=== PATIENT | male | born 1945 | race Caucasian/White ===

== ENCOUNTER 2016-06-24 12:06 | Emergency (ER) | payer BC ==
[2016-06-24 12:25] VITALS: BP 120/75; PULSE 66; TEMP 98; BMI 35.2
--- NOTE | 2016-06-24 12:39 | PDOC ---
History of Present Illness - General Chief Complaint: Injury Stated Complaint: (PCP SENT) SENT FOR RT HAND EVALUATION History Source: Patient Exam Limitations: No Limitations - History of Present Illness Initial Comments: 06/24/16 12:38 struck pole with left hand yesterday , sent for Xray from PMD Occurred: reports: yesterday Severity: reports: mild, moderate Pain Location: reports: upper extremity (left hand ) Past History - Past Medical History Allergies/Adverse Reactions: Allergies Allergy/AdvReac Type Severity Reaction Status Date / Time ibuprofen [From Motrin IB] Allergy Rash Verified 06/24/16 12:20 terfenadine [From Seldane] Allergy Rash Verified 06/24/16 12:20 Home Medications: Ambulatory Orders Carvedilol [Coreg] 6.25 mg PO BID 11/18/11 Glipizide [Glucotrol -] 10 mg PO BID 11/18/11 Metformin HCl [Glucophage] 1,000 mg PO BID 11/18/11 Levothyroxine [Synthroid -] 175 mcg PO DAILY@0700 #0 tablet 08/02/13 Latanoprost 0.005% Eye Drops [Xalatan 0.005% Eye Drops -] 1 drop OU DAILY Vitamin B Complex [B Complex # 1] 1 tab PO DAILY 08/09/13 Multivitamin/Iron/Folic Acid [One Daily Multivitamin-Iron Tb] 1 each PO DAILY Vit A/Vit C/Vit E/Zinc/Copper [Preservision Tablet] 1 tab PO DAILY 08/12/14 Tamsulosin HCl [Flomax -] 0.4 mg PO DAILY 30 Days 09/07/14 Aspirin [ASA -] 81 mg PO DAILY 02/09/16 Clopidogrel Bisulfate [Plavix -] 75 mg PO DAILY 06/24/16 Anemia: Yes Asthma: No Cancer: No Cardiac Disorders: Yes (ASHD S/P CT) CVA: No COPD: No CHF: No Dementia: No Diabetes: Yes GI Disorders: Yes (COLON POLYPS,HIGHLY DYSPLASTIC RIGHT COLON POLYP,GERD, DIVERTICULOSIS) Disorders: Yes (BPH) HTN: Yes Hypercholesterolemia: No Liver Disease: Yes Seizures: No Thyroid Disease: Yes (HYPO) - Surgical History Abdominal Surgery: Yes (LAPAROSCOPIC RIGHT HEMICOLECTOMY) Appendectomy: No Cardiac Surgery: No Cholecystectomy: No Lung Surgery: No Neurologic Surgery: No Orthopedic Surgery: Yes (LEFT TOTAL SHOULDER REPLACEMENT) - Psycho/Social/Smoking Cessation Hx Anxiety: No Suicidal Ideation: No Smoking Status: Yes Smoking History: Current every day smoker Have you smoked in the past 12 months: Yes Number of Cigarettes Smoked Daily: 10 Information on smoking cessation initiated: No 'Breaking Loose' booklet given: 02/09/16 Hx Alcohol Use: Yes Drug/Substance Use Hx: No Substance Use Type: None Hx Substance Use Treatment: No Trauma Specific PMHX - Complaint Specific PMHX Back Injury: No Review of Systems - Review of Systems Able to Perform ROS?: Yes Is the patient limited Mozambican proficient: Yes Constitutional: Yes: See HPI, Malaise. No: Symptoms Reported HEENTM: No: Symptoms Reported Respiratory: No: Symptoms reported Musculoskeletal: Yes: Symptoms Reported, See HPI, Joint Pain, Joint Swelling Integumentary: Yes: Symptoms Reported, See HPI, Bruising All Other Systems: Reviewed and Negative *Physical Exam - Vital Signs Last Vital Signs Temp Pulse Resp BP Pulse Ox 98 F 66 19 120/75 97 06/24/16 12:20 06/24/16 12:20 06/24/16 12:20 06/24/16 12:20 06/24/16 12:20 - Physical Exam General Appearance: Yes: Nourished, Appropriately Dressed, Apparent Distress HEENT: positive: [place], Normal ENT Inspection, TMs Normal, Pharynx Normal Progress Note - Progress Note Progress Note: Xray Negative/ has debris from old injuries *DC/Admit/Observation/Transfer Diagnosis at time of Disposition: Contusion, hand Qualifiers: Encounter type: initial encounter Laterality: left Qualified Code(s): S60.222A - Contusion of left hand, initial encounter - Discharge Dispostion Disposition: HOME Condition at time of disposition: Stable Admit: No - Patient Instructions Printed Discharge Instructions: DI for Contusion Additional Instructions: Rest, ice to area on and off for 15 minutes 4-6 times a day Avoid heavy lifting or exercise until pain and swelling is resolved or until further directed Keep area highly elevated to reduce swelling Use Sling to keep hand highly elevated Followup with orthopedist in one to 2 days if not improving, if significantly improved may wait one week for followup with orthopedist
[2016-06-24] MEDS ORDERED: ACETAMINOPHEN 500 MG TABLET (FP) ONE (13:24)
== END 2016-06-24 13:42 | disposition home or self-care (01) ==
LOC: JERFT 12:06
DX: S60.222A Contusion of left hand, initial encounter (principal); W22.8XXA Striking against or struck by other objects, initial encounter; Y93.89 Activity, other specified; Y92.89 Other specified places as the place of occurrence of the external cause; I25.10 Atherosclerotic heart disease of native coronary artery without angina pectoris; I10 Essential (primary) hypertension; F17.210 Nicotine dependence, cigarettes, uncomplicated; I25.2 Old myocardial infarction; E11.9 Type 2 diabetes mellitus without complications; N40.0 Benign prostatic hyperplasia without lower urinary tract symptoms; K21.9 Gastro-esophageal reflux disease without esophagitis; E03.9 Hypothyroidism, unspecified; K76.9 Liver disease, unspecified; Z79.84 Long term (current) use of oral hypoglycemic drugs
CPT/HCPCS: 73130-TC-LT; 99281-25

== ENCOUNTER 2017-04-22 02:39 | Inpatient (IN) | payer BC ==
--- NOTE | 2017-04-22 03:00 | PDOC ---
History of Present Illness <Mely Head - Last Filed: 04/22/17 09:15> - General History Source: Patient, Family Exam Limitations: No Limitations - History of Present Illness Initial Comments: 04/22/17 02:57 Patient is a 71-year-old male with past medical history of cardiac stents currently on Plavix and aspirin, precancerous polyps in the colon status post colectomy, hypertension, hypothyroidism, diabetes mellitus, who presents emergency department today for bright red blood per rectum. Patient states he awoke at 2 AM this morning and had multiple bloody bowel movements. He states that the blood filled the toilet. His states that it was bright red but thick in color almost appearing like ketchup. This is never happened to him before. Denies lightheadedness, dizziness, LOC, head trauma, fatigue, shortness of breath, chest pain, frequency, urgency and hematuria. <Kerry Flores - Last Filed: 04/24/17 15:12> - General Chief Complaint: Rectal Bleed Stated Complaint: RECTAL BLEED Time Seen by Provider: 04/22/17 02:56 Past History <Mely Head - Last Filed: 04/22/17 09:15> - Travel Traveled outside of the country in the last 30 days: No Close contact w/someone who was outside of country & ill: No - Past Medical History Anemia: Yes Asthma: No Cancer: No Cardiac Disorders: Yes (ASHD S/P [place]) CVA: No COPD: No CHF: No Dementia: No Diabetes: Yes GI Disorders: Yes (COLON POLYPS,HIGHLY DYSPLASTIC RIGHT COLON POLYP,GERD, DIVERTICULOSIS) Disorders: Yes (BPH) HTN: Yes Hypercholesterolemia: No Liver Disease: Yes Seizures: No Thyroid Disease: Yes (HYPO) - Surgical History Abdominal Surgery: Yes (LAPAROSCOPIC RIGHT HEMICOLECTOMY) Appendectomy: No Cardiac Surgery: No Cholecystectomy: No Lung Surgery: No Neurologic Surgery: No Orthopedic Surgery: Yes (LEFT TOTAL SHOULDER REPLACEMENT) - Immunization History Immunization Up to Date: No - Suicide/Smoking/Psychosocial Hx Smoking Status: Yes Smoking History: Current some day smoker Have you smoked in the past 12 months: Yes Number of Cigarettes Smoked Daily: 20 Information on smoking cessation initiated: No 'Breaking Loose' booklet given: 02/09/16 Hx Alcohol Use: No Drug/Substance Use Hx: No Substance Use Type: None Hx Substance Use Treatment: No <Sciliano,Kerry - Last Filed: 04/24/17 15:12> - Past Medical History Allergies/Adverse Reactions: Allergies Allergy/AdvReac Type Severity Reaction Status Date / Time ibuprofen [From Motrin IB] Allergy Rash Verified 04/22/17 02:56 terfenadine [From Seldane] Allergy Rash Verified 04/22/17 02:56 Home Medications: Ambulatory Orders Carvedilol [Coreg] 6.25 mg PO BID 11/18/11 Glipizide [Glucotrol -] 10 mg PO BID 11/18/11 metFORMIN HCL [Glucophage] 1,000 mg PO BID 11/18/11 Latanoprost 0.005% Eye Drops [Xalatan 0.005% Eye Drops -] 1 drop OU DAILY Vitamin B Complex [B Complex # 1] 1 tab PO DAILY 08/09/13 Multivitamin/Iron/Folic Acid [One Daily Multivitamin-Iron Tb] 1 each PO DAILY Vit A/Vit C/Vit E/Zinc/Copper [Preservision Tablet] 1 tab PO DAILY 08/12/14 Tamsulosin HCl [Flomax -] 0.4 mg PO DAILY 30 Days capsule 09/07/14 Aspirin [ASA -] 81 mg PO DAILY 02/09/16 Clopidogrel Bisulfate [Plavix -] 75 mg PO DAILY 06/24/16 Levothyroxine [Synthroid -] 200 mcg PO DAILY 04/22/17 Review of Systems - Review of Systems Able to Perform ROS?: Yes Comments:: 04/22/17 02:59 CONSTITUTIONAL: Absent: fever, chills, diaphoresis, generalized weakness, malaise, loss of appetite HEENT: Absent: rhinorrhea, nasal congestion, throat pain, throat swelling, difficulty swallowing, mouth swelling, ear pain, eye pain, visual Changes CARDIOVASCULAR: Absent: chest pain, loss of consciousness, palpitations, irregular heart rate, peripheral edema RESPIRATORY: Absent: cough, shortness of breath, dyspnea with exertion, orthopnea, wheezing, stridor, hemoptysis GASTROINTESTINAL: Present: bright red blood per rectum, hematochezia. Absent: abdominal pain, abdominal distension, nausea, vomiting, diarrhea, constipation, melena, GENITOURINARY: Absent: dysuria, frequency, urgency, hesitancy, hematuria, flank pain, genital pain MUSCULOSKELETAL: Absent: myalgia, arthralgia, joint swelling SKIN: Absent: rash, itching, pallor HEMATOLOGIC/IMMUNOLOGIC: Absent: easy bleeding, easy bruising, lymphadenopathy, frequent infections ENDOCRINE: Absent: unexplained weight gain, unexplained weight loss, heat intolerance, cold intolerance NEUROLOGIC: Absent: headache, focal weakness or paresthesias, dizziness, unsteady gait, seizure, mental status changes, bladder or bowel incontinence PSYCHIATRIC: Absent: anxiety, depression, suicidal or homicidal ideation, hallucinations. Is the patient limited Croatian proficient: No <Kerry Flores - Last Filed: 04/24/17 15:12> *Physical Exam - Vital Signs Last Vital Signs Temp Pulse Resp BP Pulse Ox 99 F 68 13 117/85 99 04/22/17 09:00 04/22/17 09:00 04/22/17 09:00 04/22/17 09:00 04/22/17 09:00 <Mely Head - Last Filed: 04/22/17 09:15> - Vital Signs Last Vital Signs Temp Pulse Resp BP Pulse Ox 97.5 F L 78 19 93/76 97 04/22/17 02:52 04/22/17 02:52 04/22/17 02:52 04/22/17 02:52 04/22/17 02:52 - Physical Exam Comments: 04/22/17 02:59 GENERAL: Well developed, well nourished. Awake and alert. No acute distress. HEENT: Normocephalic, atraumatic. PERRLA, EOMI. No conjunctival pallor. Sclera are non- icteric. Moist mucous membranes. Oropharynx is clear. NECK: Supple. Full ROM. No JVD. Carotid pulses 2+ and symmetric, without bruits. No thyromegaly. No lymphadenopathy. CARDIOVASCULAR: Regular rate and rhythm. No murmurs, rubs, or gallops. Distal pulses are 2+ and symmetric. PULMONARY: No evidence of respiratory distress. Lungs clear to auscultation bilaterally. No wheezing, rales or rhonchi. ABDOMINAL: Soft. Non-tender. Non-distended. No rebound or guarding. No organomegaly. Normoactive bowel sounds. RECTAL: Dried blood around the anal shincter. One minimal external hemorrhoid measuring less than 0.5cm at the 6 oclock positions. Good rectal tone. Bright red blood in the rectal vault. No internal hemorrohoids felt. Unable to feel the prostate. MUSCULOSKELETAL Normal range of motion at all joints. No bony deformities or tenderness. No CVA tenderness. EXTREMITIES: No cyanosis. No clubbing. No edema. No calf tenderness. SKIN: Warm and dry. Normal capillary refill. No rashes. No jaundice. NEUROLOGICAL: Alert, awake, appropriate. Cranial nerves 2-12 intact. No deficits to light touch and temperature in face, upper extremities and lower extremities. No motor deficits in the in face, upper extremities and lower extremities. Normoreflexic in the upper and lower extremities. Normal speech. Toes are down- going bilaterally. Gait is normal without ataxia. PSYCHIATRIC: Cooperative. Good eye contact. Appropriate mood and affect. <Kerry Flores - Last Filed: 04/24/17 15:12> ED Treatment Course - LABORATORY CBC & Chemistry Diagram: 04/22/17 06:44 04/22/17 03:36 - ADDITIONAL ORDERS Additional order review: Laboratory Results 04/22/17 04/22/17 04/22/17 04:20 03:36 03:36 PT with INR INR Sodium 140 Potassium 4.6 Chloride 107 Carbon Dioxide 28 Anion Gap 5 L BUN 17 D Creatinine 0.9 Creat Clearance w eGFR > 60 Random Glucose 227 H D Calcium 7.9 L Total Bilirubin 0.8 AST 18 D ALT 22 D Alkaline Phosphatase 93 Total Protein 6.4 Albumin 3.1 L Urine Color Dkyellow Urine Appearance Clear Urine pH 5.0 Ur Specific [place] 1.029 Urine Protein Negative Urine Glucose (UA) 1+ H Urine Ketones Trace H Urine Blood Negative Urine Nitrite Negative Urine Bilirubin Negative Urine Urobilinogen 2.0 Ur Leukocyte Esterase Negative Stool Occult Blood Blood Type A POSITIVE Antibody Screen Negative Crossmatch See Detail 04/22/17 04/22/17 03:36 03:35 PT with INR 13.70 H INR 1.21 H Sodium Potassium Chloride Carbon Dioxide Anion Gap BUN Creatinine Creat Clearance w eGFR Random Glucose Calcium Total Bilirubin AST ALT Alkaline Phosphatase Total Protein Albumin Urine Color Urine Appearance Urine pH Ur Specific [place] Urine Protein Urine Glucose (UA) Urine Ketones Urine Blood Urine Nitrite Urine Bilirubin Urine Urobilinogen Ur Leukocyte Esterase Stool Occult Blood Positive Blood Type Antibody Screen Crossmatch 04/22/17 04/22/17 06:44 03:36 RBC 2.46 L D 4.20 MCV 94.0 93.2 MCHC 33.0 33.0 RDW 15.2 15.5 D MPV 8.2 7.7 Neutrophils % 69.2 77.7 D Lymphocytes % 20.3 D 12.5 D Monocytes % 7.7 7.7 Eosinophils % 2.3 1.6 Basophils % 0.5 0.5 - Medications Given in the ED: ED Medications Discontinued Medications Generic Name Dose Route Start Last Admin Trade Name Oneal PRN Reason Stop Dose Admin Sodium Chloride 1,000 mls @ 1,000 mls/hr 04/22/17 03:15 04/22/17 03:51 Normal Saline - IV 04/22/17 04:14 1,000 mls/hr ASDIR STA Administration <Mely Head - Last Filed: 04/22/17 09:15> - LABORATORY CBC & Chemistry Diagram: 04/23/17 18:55 04/23/17 06:30 <Kerry Flores - Last Filed: 04/24/17 15:12> Medical Decision Making - Medical Decision Making 04/22/17 02:59 Patient is a 71-year-old male with extensive past medical history including cardiac stents on Plavix and aspirin, precancerous polyps requiring cholecystectomy, who presents to emergency department today with 3 watery bloody bowel movements. No blood in rectal vault currently. Concerned for potential new polyp or higher of internal hemorrhoid. 1.labs, type and screen 2.EKG 3.IV fluids 4.reevaluate PCP: Dr. Zeynep Momin Cardiology: [facility]: Dr. Hopkins 04/22/17 4:58 EKG shows a rate of 66 bpm normal sinus normal axis, QTC 457, nonspecific T- wave abnormality Stool guaiac positive. Hemoglobin stable at 12. Lab work shows a white count of 14. Unsure as to cause at this time. We'll order a chest x-ray. Urine is negative for infection. Patient has no abdominal pain on repeat exam. Patient has not had a bowel movement since being in the ER. We'll also order repeat CBC to trends hemoglobin for 6 AM. 04/22/17 06:00 Repeat CBC collected. 04/22/17 07:00 Patient is still waiting for chest x-ray, CBC not yet resulted. We'll give signout to [facility] Tonie Ram for disposition. Anticipate observation at this time for GI bleed on Plavix. <Kerry Flores - Last Filed: 04/24/17 15:12> *DC/Admit/Observation/Transfer <Mely Head - Last Filed: 04/22/17 09:15> - Discharge Dispostion Admit: Yes <Kerry Flores - Last Filed: 04/24/17 15:12> Diagnosis at time of Disposition: Transfusion of blood during current hospitalisation, Rectal bleeding Anemia Qualifiers: Anemia type: unspecified type Qualified Code(s): D64.9 - Anemia, unspecified - Discharge Dispostion Condition at time of disposition: Fair
[2017-04-22] MEDS ORDERED: SODIUM CHLORIDE 1,000 ML IV STA (03:15)
[2017-04-22 03:51] LABS: BASO % 0.5 % (0-2.0); EOS % 1.6 % (0-4.5); HEMATOCRIT 39.2 % (35.4-49); HEMOGLOBIN 12.9 GM/dL (11.7-16.9); LYMPH % 12.5 % (8-40); MCH 30.7 pg (25.7-33.7); MEAN CELL VOLUME 93.2 fl (80-96); MEAN PLT VOLUME 7.7 fl (7.5-11.1); MONO % 7.7 % (3.8-10.2); NEUT % 77.7 % (42.8-82.8); PLATELET COUNT 199 K/MM3 (134-434); RDW 15.5 % (11.9-15.9); WHITE BLOOD COUNT 14.2 K/mm3 (4.0-10.0)
[2017-04-22 04:04] LABS: INR 1.21 (0.82-1.09); PROTHROMBIN TIME (PATIENT) 13.7 SEC (9.98-11.88)
[2017-04-22 04:14] LABS: ALBUMIN 3.1 g/dl (3.4-5.0); ANION GAP 5 (8-16); BILIRUBIN,TOTAL 0.8 mg/dL (0.2-1.0); BLOOD UREA NITROGEN 17 mg/dL (7-18); CALCIUM 7.9 mg/dL (8.5-10.1); CHLORIDE 107 mmol/L (98-107); CO2 28 mmol/L (21-32); CREATININE 0.9 mg/dL (0.7-1.3); GLUCOSE,RANDOM 227 mg/dL (74-106); POTASSIUM 4.6 mmol/L (3.5-5.1); SGOT/AST 18 U/L (15-37); SGPT/ALT 22 U/L (12-78); SODIUM 140 mmol/L (136-145); TOT PROT 6.4 g/dl (6.4-8.2)
[2017-04-22 04:15] LABS: ALK PHOS 93 U/L (45-117)
[2017-04-22 04:40] LABS: URINE APPEARANCE CLEAR; URINE BILIRUBIN NEGATIVE (NEGATIVE); URINE BLOOD NEGATIVE (NEGATIVE); URINE COLOR DKYELLOW; URINE GLUCOSE (UA) 1+ (NEGATIVE); URINE KETONE TRACE (NEGATIVE); URINE LEUK ESTERASE NEGATIVE (NEGATIVE); URINE NITRITE NEGATIVE (NEGATIVE); URINE PROTEIN NEGATIVE (NEGATIVE)
[2017-04-22 07:01] LABS: BASO % 0.5 % (0-2.0); EOS % 2.3 % (0-4.5); HEMATOCRIT 23.1 % (35.4-49); HEMOGLOBIN 7.6 GM/dL (11.7-16.9); LYMPH % 20.3 % (8-40); MEAN PLT VOLUME 8.2 fl (7.5-11.1); MONO % 7.7 % (3.8-10.2); NEUT % 69.2 % (42.8-82.8); PLATELET COUNT 139 K/MM3 (134-434); RBC 2.46 M/mm3 (4.00-5.60); RDW 15.2 % (11.9-15.9); WHITE BLOOD COUNT 8.4 K/mm3 (4.0-10.0)
--- NOTE | 2017-04-22 09:24 | PDOC ---
*Physical Exam - Vital Signs Last Vital Signs Temp Pulse Resp BP Pulse Ox 99 F 68 13 117/85 99 04/22/17 09:00 04/22/17 09:00 04/22/17 09:00 04/22/17 09:00 04/22/17 09:00 ED Treatment Course - LABORATORY CBC & Chemistry Diagram: 04/22/17 06:44 04/22/17 03:36 - ADDITIONAL ORDERS Additional order review: Laboratory Results 04/22/17 04/22/17 04/22/17 04:20 03:36 03:36 PT with INR INR Sodium 140 Potassium 4.6 Chloride 107 Carbon Dioxide 28 Anion Gap 5 L BUN 17 D Creatinine 0.9 Creat Clearance w eGFR > 60 Random Glucose 227 H D Calcium 7.9 L Total Bilirubin 0.8 AST 18 D ALT 22 D Alkaline Phosphatase 93 Total Protein 6.4 Albumin 3.1 L Urine Color Dkyellow Urine Appearance Clear Urine pH 5.0 Ur Specific [place] 1.029 Urine Protein Negative Urine Glucose (UA) 1+ H Urine Ketones Trace H Urine Blood Negative Urine Nitrite Negative Urine Bilirubin Negative Urine Urobilinogen 2.0 Ur Leukocyte Esterase Negative Stool Occult Blood Blood Type A POSITIVE Antibody Screen Negative Crossmatch See Detail 04/22/17 04/22/17 03:36 03:35 PT with INR 13.70 H INR 1.21 H Sodium Potassium Chloride Carbon Dioxide Anion Gap BUN Creatinine Creat Clearance w eGFR Random Glucose Calcium Total Bilirubin AST ALT Alkaline Phosphatase Total Protein Albumin Urine Color Urine Appearance Urine pH Ur Specific [place] Urine Protein Urine Glucose (UA) Urine Ketones Urine Blood Urine Nitrite Urine Bilirubin Urine Urobilinogen Ur Leukocyte Esterase Stool Occult Blood Positive Blood Type Antibody Screen Crossmatch 04/22/17 04/22/17 06:44 03:36 RBC 2.46 L D 4.20 MCV 94.0 93.2 MCHC 33.0 33.0 RDW 15.2 15.5 D MPV 8.2 7.7 Neutrophils % 69.2 77.7 D Lymphocytes % 20.3 D 12.5 D Monocytes % 7.7 7.7 Eosinophils % 2.3 1.6 Basophils % 0.5 0.5 - Medications Given in the ED: ED Medications Discontinued Medications Generic Name Dose Route Start Last Admin Trade Name Freq PRN Reason Stop Dose Admin Sodium Chloride 1,000 mls @ 1,000 mls/hr 04/22/17 03:15 04/22/17 03:51 Normal Saline - IV 04/22/17 04:14 1,000 mls/hr ASDIR STA Administration Medical Decision Making - Medical Decision Making 04/22/17 08:22 Patient received in sign out from CARLENE Arthur. Patient here with sudden onset of bright red blood via rectum and now with a 5. hemoglobin drop. Patient vital stable. Patient ordered for 1 unit of blood and awaiting callback from primary care physician Dr. Jama Momin and patient's GI specialist Dr. Anderson. 04/22/17 09:23 Selected Entries 04/22/17 09:00 Temperature 99 F Pulse Rate [ 68 Apical] Respiratory 13 Rate Blood Pressure 117/85 [Left Arm] O2 Sat by Pulse 99 Oximetry (%) Case discussed with Dr. Russell and recommends unit of blood and will consult shortly. Awaiting callback from Jama Momin. Patient remains asymptomatic and comfortable in bed with at bedside 04/22/17 10:[address] Cristina Galvez and will consult shortly. Patient needed to [facility] inpatient. *DC/Admit/Observation/Transfer Diagnosis at time of Disposition: Transfusion of blood during current hospitalisation, Anemia, Rectal bleeding - Discharge Dispostion Condition at time of disposition: Fair Admit: Yes - Referrals Referrals: Zeynep Momin MD [Primary Care Provider] - - Patient Instructions - Post Discharge Activity
[2017-04-22] MEDS ORDERED: DEXTROSE 5%-NORMAL SALINE 1,000 ML IV SCH (11:15)
[2017-04-22] MEDS: PANTOPRAZOLE SODIUM 40 MG VIAL IVPUSH SCH (11:25)
[2017-04-22 13:35] VITALS: BMI 36.8
--- NOTE | 2017-04-22 17:03 | PN ---
Progress Note (short form) - Note Progress Note: GI CONSULTATION SEE COMPLETE DICTATION IN BRIEF: 71M WITH HTN/ASCAD/ S/P ICS ON ASA/PLAVIX HX OF DYSPLASTIC COLONIC POLYPS, S/P ILEOCOLIC RESECTION 2013 LAST COLON--2014---WITH SEVERE TICS AND RECURRENT POLYPS PRESENTS WITH ACUTE HEMATOCHEZIA AND MARKED DROP IN HGB TO 7 PAINLESS BRBPR x 3 FINDINGS C/W A HEMODYNE STABLE LGIB----> PRESUMED DIVERTICULAR RECC: HOLD ASA/PLAVIX PRBC F/U H/H OBSERVE----APPEARS LESSENING---ONCE STABLE TO UNDERGO COLONOSOCPY NEXT WEEK OPNCE OFF A/C IF BLEEDING ACCELERATES, THEN WILL NEED BLEEDING SCAN/ POSSIBLE CT ANGIO AND IV OCTREOTIDE/SURGICAL EVAL. THANKS, MD WINNIE
[2017-04-22] MEDS: INSULIN SLIDING SCALE (NOVOLOG) 1 VIAL SQ SCH ×2 (17:14→21:08)
[2017-04-22 18:43] LABS: HEMOGLOBIN 11.2 GM/dL (11.7-16.9); MCH 31.1 pg (25.7-33.7); MCHC 33.9 g/dl (32.0-35.9); MEAN CELL VOLUME 91.9 fl (80-96); PLATELET COUNT 174 K/MM3 (134-434); RBC 3.59 M/mm3 (4.00-5.60); RDW 15.8 % (11.9-15.9); WHITE BLOOD COUNT 10.6 K/mm3 (4.0-10.0)
--- NOTE | 2017-04-22 19:41 | HP ---
Admitting History and Physical - Primary Care Physician PCP: Zeynep Momin - Admission Chief Complaint: GI bleed History of Present Illness: History of Present Illness Initial Comments: 04/22/17 02:57 Patient is a 71-year-old male with past medical history of cardiac stents currently on Plavix and aspirin, precancerous polyps in the colon status post colectomy, hypertension, hypothyroidism, diabetes mellitus, who presents emergency department today for bright red blood per rectum. Patient states he awoke at 2 AM this morning and had multiple bloody bowel movements. He states that the blood filled the toilet. His states that it was bright red but thick in color almost appearing like ketchup. This is never happened to him before. Denies lightheadedness, dizziness, LOC, head trauma, fatigue, shortness of breath, chest pain, frequency, urgency and hematuria. Pt seen by me in ER at bedside so far no active bleeding-- only when he wipes himself No pain , dizziness last Plavix dose was yesterday Currently receiving one unit PRBC Pt is on ASA and Plavix for stent placed in Sep 2015 History Source: Patient, Family Member Limitations to Obtaining History: No Limitations - Past Medical History Cardiovascular: Yes: HTN. No: AFIB, Aneurysm, Aortic Insufficiency, Aortic Stenosis, CAD, CHF, Deep Vein Thrombosis, Hyperlipdemia, [place], Mitral Insufficiency, Mitral Stenosis, Murmur, Pulmonary Hypertension, Other Pulmonary: Yes: COPD Heme/Onc: Yes: Anemia Endocrine: Yes: Diabetes Mellitus, Hypothyroidism. No: [place]'s Disease, Christina's Disease, Diabetes Insipidus, Hyperparathyroidism, Hyperthyroidism, Osteopenia, SIADH, Other - Smoking History Smoking history: Current some day smoker Have you smoked in the past 12 months: Yes Aproximately how many cigarettes per day: 20 - Alcohol/Substance Use Hx Alcohol Use: No Home Medications - Allergies Allergies/Adverse Reactions: Allergies Allergy/AdvReac Type Severity Reaction Status Date / Time ibuprofen [From Motrin IB] Allergy Rash Verified 04/22/17 02:56 terfenadine [From Seldane] Allergy Rash Verified 04/22/17 02:56 - Home Medications Home Medications: Ambulatory Orders Carvedilol [Coreg] 6.25 mg PO BID 11/18/11 Glipizide [Glucotrol -] 10 mg PO BID 11/18/11 metFORMIN HCL [Glucophage] 1,000 mg PO BID 11/18/11 Latanoprost 0.005% Eye Drops [Xalatan 0.005% Eye Drops -] 1 drop OU DAILY Vitamin B Complex [B Complex # 1] 1 tab PO DAILY 08/09/13 Multivitamin/Iron/Folic Acid [One Daily Multivitamin-Iron Tb] 1 each PO DAILY Vit A/Vit C/Vit E/Zinc/Copper [Preservision Tablet] 1 tab PO DAILY 08/12/14 Tamsulosin HCl [Flomax -] 0.4 mg PO DAILY 30 Days capsule 09/07/14 Aspirin [ASA -] 81 mg PO DAILY 02/09/16 Clopidogrel Bisulfate [Plavix -] 75 mg PO DAILY 06/24/16 Levothyroxine [Synthroid -] 200 mcg PO DAILY 04/22/17 Review of Systems - Review of Systems Constitutional: denies: Chills, Lethargy, Loss of Appetite, Weakness Cardiovascular: denies: Chest Pain, Shortness of Breath Gastrointestinal: reports: Diarrhea, Rectal Bleeding. denies: Abdominal Pain, Constipation, Indigestion, Nausea, Vomiting Physical Examination Vital Signs: Vital Signs Temperature 98.6 F 04/22/17 15:11 Pulse Rate 71 04/22/17 15:11 Respiratory Rate 20 04/22/17 15:11 Blood Pressure 119/75 04/22/17 15:11 O2 Sat by Pulse Oximetry (%) 97 04/22/17 12:31 Constitutional: Yes: No Distress, Calm Cardiovascular: Yes: Regular Rate and Rhythm Respiratory: Yes: CTA Bilaterally Gastrointestinal: Yes: Normal Bowel Sounds, Soft, Abdomen, Obese. No: Tenderness Edema: No Neurological: Yes: Alert, Oriented Labs: CBC, BMP 04/22/17 18:20 04/22/17 03:36 Imaging - Results Chest X-ray: Image Reviewed (congestion mild) EKG: Image Reviewed (NSR) Problem List - Problems (1) Anemia Code(s): D64.9 - ANEMIA, UNSPECIFIED (2) Diverticulosis Code(s): K57.90 - DVRTCLOS OF INTEST, PART UNSP, W/O PERF OR ABSCESS W/O BLEED (3) Rectal bleeding Code(s): K62.5 - HEMORRHAGE OF ANUS AND RECTUM (4) Transfusion of blood during current hospitalisation Code(s): BHN0644 - (5) HTN (hypertension) Code(s): I10 - ESSENTIAL (PRIMARY) HYPERTENSION Qualifiers: Hypertension type: essential hypertension Qualified Code(s): I10 - Essential (primary) hypertension (6) Hypothyroidism Code(s): E03.9 - HYPOTHYROIDISM, UNSPECIFIED Assessment/Plan PLAN transfusing one unit PRBC check CBC q12h Protonix hold off DM meds keep NPO Hold ASA and Plavix GI and Cardiology eval Repeat CXR iv fluids
[2017-04-22] MEDS: CARVEDILOL 6.25 MG TABLET (FP) PO SCH (21:08)
--- NOTE | 2017-04-22 22:10 | CON.CARD ---
Consult Consult Specialty:: CArdiology Reason for Consultation:: gi bleed on dapt - History of Present Illness History of Present Illness: Patient is a 71-year-old male with past medical history of cardiac stents currently on Plavix and aspirin, precancerous polyps in the colon status post colectomy, hypertension, hypothyroidism, diabetes mellitus, who presents emergency department today for bright red blood per rectum. Patient states he awoke at 2 AM this morning and had multiple bloody bowel movements. He states that the blood filled the toilet. His states that it was bright red but thick in color almost appearing like ketchup. This is never happened to him before. Denies lightheadedness, dizziness, LOC, head trauma, fatigue, shortness of breath, chest pain, frequency, urgency and hematuria. PMH cholelithiasis DM HTN Hypothyroidism morbid obesity Negative MIBI Stress Test Nov 2011 [facility]. PCI CELI of mLCx September 17, 2015 Dr. Kent - Past Medical History Cardio/Vascular: Yes: HTN. No: AFIB, Aneurysm, Aortic Insufficiency, Aortic Stenosis, CAD, CHF, Deep Vein Thrombosis, Hyperlipdemia, IA, Mitral Insufficiency, Mitral Stenosis, Murmur, Pulmonary Hypertension, Other Pulmonary: Yes: COPD Endocrine: Yes: Diabetes Mellitus, Hypothyroidism. No: [place]'s Disease, [place]'s Disease, Diabetes Insipidus, Hyperparathyroidism, Hyperthyroidism, Osteopenia, SIADH, Other - Alcohol/Substance Use Hx Alcohol Use: No - Smoking History Smoking history: Current some day smoker Have you smoked in the past 12 months: Yes Aproximately how many cigarettes per day: 20 Home Medications - Allergies Allergies/Adverse Reactions: Allergies Allergy/AdvReac Type Severity Reaction Status Date / Time ibuprofen [From Motrin IB] Allergy Rash Verified 04/22/17 02:56 terfenadine [From Seldane] Allergy Rash Verified 04/22/17 02:56 - Home Medications Home Medications: Ambulatory Orders Carvedilol [Coreg] 6.25 mg PO BID 11/18/11 Glipizide [Glucotrol -] 10 mg PO BID 11/18/11 metFORMIN HCL [Glucophage] 1,000 mg PO BID 11/18/11 Latanoprost 0.005% Eye Drops [Xalatan 0.005% Eye Drops -] 1 drop OU DAILY Vitamin B Complex [B Complex # 1] 1 tab PO DAILY 08/09/13 Multivitamin/Iron/Folic Acid [One Daily Multivitamin-Iron Tb] 1 each PO DAILY Vit A/Vit C/Vit E/Zinc/Copper [Preservision Tablet] 1 tab PO DAILY 08/12/14 Tamsulosin HCl [Flomax -] 0.4 mg PO DAILY 30 Days capsule 09/07/14 Aspirin [ASA -] 81 mg PO DAILY 02/09/16 Clopidogrel Bisulfate [Plavix -] 75 mg PO DAILY 06/24/16 Levothyroxine [Synthroid -] 200 mcg PO DAILY 04/22/17 Review of Systems - Review of Systems Constitutional: reports: No Symptoms Eyes: reports: No Symptoms HENT: reports: No Symptoms Neck: reports: No Symptoms Cardiovascular: reports: No Symptoms Gastrointestinal: reports: Rectal Bleeding Genitourinary: reports: No Symptoms Breasts: reports: No Symptoms Reported Musculoskeletal: reports: No Symptoms Integumentary: reports: No Symptoms Neurological: reports: No Symptoms Endocrine: reports: No Symptoms Hematology/Lymphatic: reports: No Symptoms Psychiatric: reports: No Symptoms Vital Signs: Vital Signs Temperature 98.6 F 04/22/17 15:11 Pulse Rate 71 04/22/17 15:11 Respiratory Rate 20 04/22/17 20:26 Blood Pressure 119/75 04/22/17 15:11 O2 Sat by Pulse Oximetry (%) 95 04/22/17 20:26 Constitutional: Yes: Well Nourished, No Distress, Calm Eyes: Yes: WNL, Conjunctiva Clear, EOM Intact HENT: Yes: WNL, Atraumatic, Normocephalic Neck: Yes: WNL, Supple, Trachea Midline Respiratory: Yes: WNL, Regular, CTA Bilaterally Gastrointestinal: Yes: WNL, Normal Bowel Sounds Renal/: Yes: WNL Cardiovascular: Yes: WNL, Regular Rate and Rhythm Musculoskeletal: Yes: WNL Extremities: Yes: WNL Integumentary: Yes: WNL Neurological: Yes: WNL, Alert, Oriented ...Motor Strength: WNL Psychiatric: Yes: WNL, Alert, Oriented - Other Data Labs, Other Data: CBC, BMP 04/22/17 18:20 04/22/17 03:36 INR, PTT INR 1.21 (0.82-1.09) H 04/22/17 03:36 Imaging - Results Chest X-ray: Image Reviewed (cm) EKG: Image Reviewed (sr rep abn) Problem List - Problems (1) Anemia Code(s): D64.9 - ANEMIA, UNSPECIFIED (2) Rectal bleeding Code(s): K62.5 - HEMORRHAGE OF ANUS AND RECTUM (3) Transfusion of blood during current hospitalisation Code(s): [id number] - (4) Abnormal laboratory test result Code(s): R89.9 - UNSP ABNORMAL FINDING IN SPECIMENS FROM OTH ORG/TISS (5) Colon tumor Code(s): D49.0 - NEOPLASM OF UNSPECIFIED BEHAVIOR OF DIGESTIVE SYSTEM (6) Contusion of hand, left Code(s): S60.222A - CONTUSION OF LEFT HAND, INITIAL ENCOUNTER Qualifiers: Encounter type: initial encounter Qualified Code(s): S60.222A - Contusion of left hand, initial encounter (7) Fever Code(s): R50.9 - FEVER, UNSPECIFIED (8) Flank pain Code(s): R10.9 - UNSPECIFIED ABDOMINAL PAIN (9) HTN (hypertension) Code(s): I10 - ESSENTIAL (PRIMARY) HYPERTENSION Qualifiers: Hypertension type: essential hypertension Qualified Code(s): I10 - Essential (primary) hypertension (10) Hypothyroidism Code(s): E03.9 - HYPOTHYROIDISM, UNSPECIFIED (11) Infiltrate noted on imaging study Code(s): R93.8 - ABNORMAL FINDINGS ON DIAGNOSTIC IMAGING OF BODY STRUCTURES (12) Pneumonia Code(s): J18.9 - PNEUMONIA, UNSPECIFIED ORGANISM Qualifiers: Pneumonia type: due to unspecified organism Laterality: right Lung location: lower lobe of lung Qualified Code(s): J18.9 - Pneumonia, unspecified organism (13) Renal colic on left side Code(s): N23 - UNSPECIFIED RENAL COLIC (14) Renal insufficiency, mild Code(s): N28.9 - DISORDER OF KIDNEY AND URETER, UNSPECIFIED (15) Rhabdomyolysis Code(s): M62.82 - RHABDOMYOLYSIS Qualifiers: Rhabdomyolysis type: non-traumatic Qualified Code(s): M62.82 - Rhabdomyolysis (16) Shock Code(s): R57.9 - SHOCK, UNSPECIFIED (17) UTI (lower urinary tract infection) Code(s): N39.0 - URINARY TRACT INFECTION, SITE NOT SPECIFIED Assessment/Plan GI bleed anemia cholelithiasis DM HTN Hypothyroidism morbid obesity Negative MIBI Stress Test Nov 2011 [facility]. PCI CELI of mLCx September 17, 2015 Dr. Knet Plan hold dapt prbc transfusion gi eval
[2017-04-22] MEDS: LATANOPROST 0.005% OPHTH SOLN 2.5ML BOTTLE OU SCH (22:22)
[2017-04-22] MEDS ORDERED: PT OWN MED DRAWER 7, Y5N ONE (22:27)
[2017-04-23] MEDS: INSULIN SLIDING SCALE (NOVOLOG) 1 VIAL SQ SCH ×4 (06:23→21:22)
[2017-04-23] MEDS: LEVOTHYROXINE NA 100 MCG TABLET (FP) PO SCH (06:24)
[2017-04-23] MEDS ORDERED: LEVOTHYROXINE 100 MCG, LEVOTHYROXINE 75 MCG PO SCH (07:00)
[2017-04-23] MEDS ORDERED: LEVOTHYROXINE NA 175 MCG TABLET PO SCH (07:00)
[2017-04-23 07:50] LABS: HEMATOCRIT 32.7 % (35.4-49); HEMOGLOBIN 11.2 GM/dL (11.7-16.9); MCH 31.2 pg (25.7-33.7); MCHC 34.2 g/dl (32.0-35.9); MEAN CELL VOLUME 91.2 fl (80-96); MEAN PLT VOLUME 8.1 fl (7.5-11.1); PLATELET COUNT 172 K/MM3 (134-434); RBC 3.59 M/mm3 (4.00-5.60); RDW 15.3 % (11.9-15.9); WHITE BLOOD COUNT 9.8 K/mm3 (4.0-10.0)
[2017-04-23 08:03] LABS: CALCIUM 8.2 mg/dL (8.5-10.1); CHLORIDE 107 mmol/L (98-107); POTASSIUM 4.4 mmol/L (3.5-5.1); SODIUM 141 mmol/L (136-145)
[2017-04-23 08:17] LABS: ANION GAP 6 (8-16); BLOOD UREA NITROGEN 10 mg/dL (7-18); CO2 28 mmol/L (21-32); CREATININE 0.7 mg/dL (0.7-1.3); GLUCOSE,RANDOM 130 mg/dL (74-106)
--- NOTE | 2017-04-23 09:08 | PN ---
Progress Note, Physician History of Present Illness: Patient is a 71-year-old male with past medical history of cardiac stents currently on Plavix and aspirin, precancerous polyps in the colon status post colectomy, hypertension, hypothyroidism, diabetes mellitus, who presents emergency department today for bright red blood per rectum. Patient states he awoke at 2 AM this morning and had multiple bloody bowel movements. He states that the blood filled the toilet. His states that it was bright red but thick in color almost appearing like ketchup. This is never happened to him before. Denies lightheadedness, dizziness, LOC, head trauma, fatigue, shortness of breath, chest pain, frequency, urgency and hematuria. PMH cholelithiasis DM HTN Hypothyroidism morbid obesity Negative MIBI Stress Test Nov 2011 [facility]. PCI CELI of mLCx September 17, 2015 Dr. Kent - Current Medication List Current Medications: Active Medications Carvedilol (Coreg -) 6.25 mg PO BID [facility] Last Admin: 04/22/17 21:08 Dose: 6.25 mg Dextrose/Sodium Chloride (D5-Ns -) 1,000 mls @ 75 mls/hr IV ASDIR [facility] Last Admin: 04/22/17 11:47 Dose: 75 mls/hr Insulin Aspart (Novolog Vial Sliding Scale -) 1 vial SQ ACHS [facility] PRN Reason: Protocol Last Admin: 04/23/17 06:23 Dose: Not Given Latanoprost (Xalatan 0.005% Eye Drops -) 1 drop OU HS [facility] Last Admin: 04/22/17 22:22 Dose: 1 drop Levothyroxine Sodium (Synthroid -) 200 mcg PO DAILY@0700 [facility] Last Admin: 04/23/17 06:24 Dose: 200 mcg Pantoprazole Sodium (Protonix Iv) 40 mg IVPUSH DAILY [facility] Last Admin: 04/22/17 11:25 Dose: 40 mg - Objective Vital Signs: Vital Signs Temperature 98.2 F 04/23/17 06:00 Pulse Rate 72 04/23/17 06:00 Respiratory Rate 20 04/23/17 06:00 Blood Pressure 96/55 04/23/17 06:00 O2 Sat by Pulse Oximetry (%) 95 04/22/17 20:26 Eyes: Yes: WNL, Conjunctiva Clear, EOM Intact HENT: Yes: WNL, Atraumatic, Normocephalic Neck: Yes: WNL, Supple, Trachea Midline Cardiovascular: Yes: WNL, Regular Rate and Rhythm Respiratory: Yes: WNL, Regular, CTA Bilaterally Gastrointestinal: Yes: WNL, Normal Bowel Sounds Genitourinary: Yes: WNL Musculoskeletal: Yes: WNL Extremities: Yes: WNL Edema: No Integumentary: Yes: WNL Neurological: Yes: WNL, Alert, Oriented ...Motor Strength: WNL Psychiatric: Yes: WNL Labs: CBC, BMP 04/23/17 06:30 04/23/17 06:30 INR, PTT INR 1.21 (0.82-1.09) H 04/22/17 03:36 Problem List - Problems (1) Anemia Code(s): D64.9 - ANEMIA, UNSPECIFIED (2) Rectal bleeding Code(s): K62.5 - HEMORRHAGE OF ANUS AND RECTUM (3) Transfusion of blood during current hospitalisation Code(s): [id number] - (4) Abnormal laboratory test result Code(s): R89.9 - UNSP ABNORMAL FINDING IN SPECIMENS FROM OTH ORG/TISS (5) Colon tumor Code(s): D49.0 - NEOPLASM OF UNSPECIFIED BEHAVIOR OF DIGESTIVE SYSTEM (6) Contusion of hand, left Code(s): S60.222A - CONTUSION OF LEFT HAND, INITIAL ENCOUNTER Qualifiers: Encounter type: initial encounter Qualified Code(s): S60.222A - Contusion of left hand, initial encounter (7) Fever Code(s): R50.9 - FEVER, UNSPECIFIED (8) Flank pain Code(s): R10.9 - UNSPECIFIED ABDOMINAL PAIN (9) HTN (hypertension) Code(s): I10 - ESSENTIAL (PRIMARY) HYPERTENSION Qualifiers: Hypertension type: essential hypertension Qualified Code(s): I10 - Essential (primary) hypertension (10) Hypothyroidism Code(s): E03.9 - HYPOTHYROIDISM, UNSPECIFIED (11) Infiltrate noted on imaging study Code(s): R93.8 - ABNORMAL FINDINGS ON DIAGNOSTIC IMAGING OF BODY STRUCTURES (12) Pneumonia Code(s): J18.9 - PNEUMONIA, UNSPECIFIED ORGANISM Qualifiers: Pneumonia type: due to unspecified organism Laterality: right Lung location: lower lobe of lung Qualified Code(s): J18.9 - Pneumonia, unspecified organism (13) Renal colic on left side Code(s): N23 - UNSPECIFIED RENAL COLIC (14) Renal insufficiency, mild Code(s): N28.9 - DISORDER OF KIDNEY AND URETER, UNSPECIFIED (15) Rhabdomyolysis Code(s): M62.82 - RHABDOMYOLYSIS Qualifiers: Rhabdomyolysis type: non-traumatic Qualified Code(s): M62.82 - Rhabdomyolysis (16) Shock Code(s): R57.9 - SHOCK, UNSPECIFIED (17) UTI (lower urinary tract infection) Code(s): N39.0 - URINARY TRACT INFECTION, SITE NOT SPECIFIED Assessment/Plan GI bleed anemia cholelithiasis DM HTN Hypothyroidism morbid obesity Negative MIBI Stress Test Nov 2011 [facility]. PCI CELI of mLCx September 17, 2015 Dr. Kent Plan hold dapt prbc transfusion gi eval
[2017-04-23] MEDS: PANTOPRAZOLE SODIUM 40 MG VIAL IVPUSH SCH (10:15)
[2017-04-23] MEDS: CARVEDILOL 6.25 MG TABLET (FP) PO SCH ×2 (10:16→21:21)
[2017-04-23] MEDS ORDERED: DEXTROSE 5%-NORMAL SALINE 1,000 ML IV SCH (11:35)
--- NOTE | 2017-04-23 11:35 | PN ---
Progress Note, Physician Chief Complaint: no bloody bm so far no complaints feels well on clear liquid diet - Current Medication List Current Medications: Active Medications Carvedilol (Coreg -) 6.25 mg PO BID [facility] Last Admin: 04/23/17 10:16 Dose: 6.25 mg Dextrose/Sodium Chloride (D5-Ns -) 1,000 mls @ 75 mls/hr IV ASDIR [facility] Last Admin: 04/22/17 11:47 Dose: 75 mls/hr Insulin Aspart (Novolog Vial Sliding Scale -) 1 vial SQ ACHS [facility] PRN Reason: Protocol Last Admin: 04/23/17 06:23 Dose: Not Given Latanoprost (Xalatan 0.005% Eye Drops -) 1 drop OU HS [facility] Last Admin: 04/22/17 22:22 Dose: 1 drop Levothyroxine Sodium (Synthroid -) 200 mcg PO DAILY@0700 [facility] Last Admin: 04/23/17 06:24 Dose: 200 mcg Pantoprazole Sodium (Protonix Iv) 40 mg IVPUSH DAILY [facility] Last Admin: 04/23/17 10:15 Dose: 40 mg - Objective Vital Signs: Vital Signs Temperature 98.2 F 04/23/17 06:00 Pulse Rate 72 04/23/17 06:00 Respiratory Rate 20 04/23/17 06:00 Blood Pressure 96/55 04/23/17 06:00 O2 Sat by Pulse Oximetry (%) 95 04/22/17 20:26 Constitutional: Yes: No Distress Cardiovascular: Yes: Regular Rate and Rhythm Respiratory: Yes: CTA Bilaterally Gastrointestinal: Yes: Normal Bowel Sounds, Soft, Abdomen, Obese. No: Tenderness Edema: No Labs: CBC, BMP 04/23/17 06:30 04/23/17 06:30 INR, PTT INR 1.21 (0.82-1.09) H 04/22/17 03:36 Problem List - Problems (1) Diverticulosis Code(s): K57.90 - DVRTCLOS OF INTEST, PART UNSP, W/O PERF OR ABSCESS W/O BLEED (2) Anemia Code(s): D64.9 - ANEMIA, UNSPECIFIED (3) Rectal bleeding Code(s): K62.5 - HEMORRHAGE OF ANUS AND RECTUM (4) Transfusion of blood during current hospitalisation Code(s): [id number] - (5) HTN (hypertension) Code(s): I10 - ESSENTIAL (PRIMARY) HYPERTENSION Qualifiers: Hypertension type: essential hypertension Qualified Code(s): I10 - Essential (primary) hypertension (6) Hypothyroidism Code(s): E03.9 - HYPOTHYROIDISM, UNSPECIFIED Assessment/Plan Plan no further bleeding ASA and Plavix on hold GI eval noted Cardiology eval noted HCT stable hold DM meds for now as he is on clears only spoke with
--- NOTE | 2017-04-23 15:30 | PN ---
GI Progress Note Subjective: GI FOLLOW UP NOTE NO GI C/O NO BM OVERNIGHT NO FURTHER BLEEDING STATES HE GOT 1 U PRBC CLEARS TOLERATED WELL FEELS HUNGRY AND WANTS TO EAT - Objective Vital Signs: Vital Signs Temperature 98.3 F 04/23/17 13:23 Pulse Rate 61 04/23/17 13:23 Respiratory Rate 22 04/23/17 13:23 Blood Pressure 119/70 04/23/17 13:23 O2 Sat by Pulse Oximetry (%) 95 04/23/17 09:00 Constitutional: Well Nourished, No Distress, Calm, Obese Eyes: Yes: WNL (+BS/ SOFT/ NT/ NO M/R/G) Labs: CBC, BMP 04/23/17 06:30 04/23/17 06:30 INR, PTT INR 1.21 (0.82-1.09) H 04/22/17 03:36 Assessment/Plan 71M WITH CARDIAC DISEASE S/P ICS ON A/C: PLAVIX/ASA ACUTE HEMATOCHEZIA AND DROP IN HGB TO 7 GRAMS RISE TO 11 GRAMS AFTER 1 U PRBC'S----SEEMS IMPOSSIBLE--MUST BE LAB ERROR HAVE SPOKEN WITH PT AND CAN'T PERFORM COLONOSCOPY TILL OFF PLAVIX FOR A FEW DAYS, SO MAY NEED TO BE DONE OUTPATIENT HAD NOW OFF PLAVIX FOR ONLY 24 HOURS LGIB RESOLVED/ STRONGLY SUSPECT DIVERTICULAR GOOD RESPONSE TO PRBC'S, SUSPECT FALESLY ELEVATED ADVANCE TO SOLID DIET WILL DEFER TO PMD TO EITHER INPATIENT COLONOSCOPY IN 4-5 DAYS OR OUTPATIENT THANKS, MD WINNIE
--- NOTE | 2017-04-23 16:13 | CONS ---
DATE OF CONSULTATION: 04/22/2017 I was asked by the emergency room to evaluate the patient for hematochezia. The patient is a 71-year-old white male who is a fair informant. He is known to my partner, Dr. Anderson, who has followed him over the years. Apparently the patient had history of multiple recurrent colon polyps as well as diverticulosis. It appears around 2013 he underwent an ileocolic resection due to the finding of a severely dysplastic polyp that was causing obstruction, according to the patient. He believes Dr. Gale did the resection and the patient then, it is noted by the computer system, on August 13, 2014, underwent a colonoscopy with Dr. Anderson that revealed the presence of some recurrent polyps as well as diverticulosis. It appears the patient might not have been seen by our group since that time and apparently he was doing well without problem, eating fine, until last evening when in the middle of the night, I think around 1 or 2 a.m., he had the onset of mynor hematochezia with minimal lower abdominal cramping. No nausea, vomiting. No fevers, chills, or sweats. He had 3 episodes of bright red blood per rectum. It sounded like a faucet, according to the . It came on all of a sudden. He got a little weak and dizzy and came to the hospital for evaluation. The patient was noted to have a significant drop in his hemoglobin from his baseline and was admitted for evaluation. At the present time, the patient, since being admitted, has not had any further episodes of hematochezia and he is very hungry and would like to eat solid food. He has a past medical history of hypertension. He has had recent intracoronary stenting. He says that was done in September of 2016 in [facility]. He was started on aspirin and Plavix. He also has diabetes, hypothyroidism, and he has been on metformin, levothyroxine, carvedilol, glipizide, aspirin, and Plavix and Flomax. Currently in the hospital, the patient's medications include Coreg, IV fluid, NovoLog, Xalatan eye drops, Protonix, Synthroid, as his only medications. The patient currently does not smoke or drink. He is . On physical exam, he is in no acute distress. He looks okay. He looks minimally pale. He appears very comfortable. He is obese. Sclerae are anicteric. His mouth is moist. His neck is supple. His abdomen is very soft. Bowel sounds are active. There are no masses, rebound, or guarding. There is a healed right lower quadrant scar. There is no tenderness to deep palpation. I deferred the rectal as I spoke to the ER attending who performed it and got basically mynor hematochezia. Currently his vital signs reveal that he is stable with a blood pressure of 120/75 and a heart rate of 70 and he has a temperature of 98.6. He has had no GI films to comment. It is my impression that the patient is a 71-year-old gentleman with multiple medical problems of diabetes, cardiac disease, hypertension, hypothyroidism, who has had known recurrent dysplastic polyps, he is status post a partial right ileal colectomy [place] [address] Gale. He had a followup colonoscopy in [address] Anderson with finding of recurrent polyps and diverticulosis. He was advised to have a followup exam in 2015 but he did not. He now presents with hemodynamically stable GI bleeding, hematochezia. It appears to be a lower GI bleed, I suspect due to diverticular bleeding. At this time, I would recommend that his aspirin and Plavix be held, he be observed on a clear liquid diet, his hemoglobin and hematocrit be followed. He got 1 unit of blood. Will see if his counts come up. If they do not, then he should get another unit of packed cells. I do not think a proton pump inhibitor is going to help him but it would probably not hurt him, therefore it would be okay to continue. For now, I would recommend close observation as you are doing and once the aspirin and Plavix wear off and once he is more stable, he will be prepped for a colonoscopy during the week by Dr. Anderson. We will continue to be available to aid in the management of this patient. However, at the present time, I would recommend supportive care. Should he have ongoing life-threatening bleeding, then we would start him on octreotide and have him undergo a surgical evaluation as well as a CT angio, but at this time it does not appear that is warranted. We will continue to be available. Thank you kindly. MALICK ZHOU M.D. KARLEY/[id number]
[2017-04-23 20:07] LABS: HEMATOCRIT 33.5 % (35.4-49); HEMOGLOBIN 11.3 GM/dL (11.7-16.9); MCH 31.3 pg (25.7-33.7); MCHC 33.8 g/dl (32.0-35.9); MEAN CELL VOLUME 92.7 fl (80-96); MEAN PLT VOLUME 8.1 fl (7.5-11.1); PLATELET COUNT 176 K/MM3 (134-434); RBC 3.62 M/mm3 (4.00-5.60); WHITE BLOOD COUNT 7.8 K/mm3 (4.0-10.0)
--- NOTE | 2017-04-23 20:28 | EKG ---
Test Reason : Blood Pressure : / mmHG Vent. Rate : 066 BPM Atrial Rate : 066 BPM P-R Int : 156 ms QRS Dur : 074 ms QT Int : 436 ms P-R-T Axes : 047 -10 006 degrees QTc Int : 457 ms NORMAL SINUS RHYTHM NONSPECIFIC T WAVE ABNORMALITY ABNORMAL ECG WHEN COMPARED WITH ECG OF 09-FEB-2016 20:09, NO SIGNIFICANT CHANGE WAS FOUND Confirmed by EMIR TEIXEIRA MD ([id number]) on 04/23/2017 8:27:46 PM Referred By: Confirmed By:EMIR TEIXEIRA MD
[2017-04-23] MEDS: LATANOPROST 0.005% OPHTH SOLN 2.5ML BOTTLE OU SCH (21:23)
[2017-04-24] MEDS: LEVOTHYROXINE NA 100 MCG TABLET (FP) PO SCH (06:09)
[2017-04-24] MEDS: INSULIN SLIDING SCALE (NOVOLOG) 1 VIAL SQ SCH ×4 (06:13→21:00)
[2017-04-24] MEDS ORDERED: PT OWN MED DRAWER 7, Y5N ONE ×2 (09:37→20:44)
[2017-04-24] MEDS: CARVEDILOL 6.25 MG TABLET (FP) PO SCH ×2 (09:39→21:00)
[2017-04-24] MEDS: PANTOPRAZOLE SODIUM 40 MG VIAL IVPUSH SCH (09:39)
--- NOTE | 2017-04-24 11:11 | PN ---
Progress Note, Physician History of Present Illness: patient seen and examined. chart reviewed. Sitting in chair. No complaints. No further bleeding noted. Tolerating diet. - Current Medication List Current Medications: Active Medications Carvedilol (Coreg -) 6.25 mg PO BID [facility] Last Admin: 04/24/17 09:39 Dose: 6.25 mg Dextrose/Sodium Chloride (D5-Ns -) 1,000 mls @ 50 mls/hr IV ASDIR [facility] Last Admin: 04/23/17 21:10 Dose: Not Given Insulin Aspart (Novolog Vial Sliding Scale -) 1 vial SQ ACHS [facility] PRN Reason: Protocol Last Admin: 04/24/17 06:13 Dose: 2 units Latanoprost (Xalatan 0.005% Eye Drops -) 1 drop OU HS [facility] Last Admin: 04/23/17 21:23 Dose: 1 drop Levothyroxine Sodium (Synthroid -) 200 mcg PO DAILY@0700 [facility] Last Admin: 04/24/17 06:09 Dose: 200 mcg Pantoprazole Sodium (Protonix Iv) 40 mg IVPUSH DAILY [facility] Last Admin: 04/24/17 09:39 Dose: 40 mg - Objective Vital Signs: Vital Signs Temperature 97.9 F 04/24/17 06:00 Pulse Rate 60 04/24/17 06:00 Respiratory Rate 20 04/24/17 06:00 Blood Pressure 100/61 04/24/17 06:00 O2 Sat by Pulse Oximetry (%) 95 04/23/17 21:00 Constitutional: Yes: No Distress, Calm Eyes: Yes: Conjunctiva Clear Neck: Yes: Supple Cardiovascular: Yes: Regular Rate and Rhythm Respiratory: Yes: Other (prolonged expiration) Gastrointestinal: Yes: Normal Bowel Sounds, Soft Edema: No Neurological: Yes: Alert Psychiatric: Yes: Alert Labs: CBC, BMP 04/23/17 18:55 04/23/17 06:30 INR, PTT INR 1.21 (0.82-1.09) H 04/22/17 03:36 Problem List - Problems (1) Chronic obstructive pulmonary disease Code(s): J44.9 - CHRONIC OBSTRUCTIVE PULMONARY DISEASE, UNSPECIFIED (2) Diverticulosis Code(s): K57.90 - DVRTCLOS OF INTEST, PART UNSP, W/O PERF OR ABSCESS W/O BLEED (3) Rectal bleeding Code(s): K62.5 - HEMORRHAGE OF ANUS AND RECTUM (4) Transfusion of blood during current hospitalisation Code(s): [id number] - (5) HTN (hypertension) Code(s): I10 - ESSENTIAL (PRIMARY) HYPERTENSION Qualifiers: Hypertension type: essential hypertension Qualified Code(s): I10 - Essential (primary) hypertension Assessment/Plan clinically stable no further bleeding ASA and Plavix on hold---colonoscopy inpatient versus outpatient GI eval noted. Will discuss with GI HCT stable discontinue fluids. if hemoglobin is stable tomorrow----will consider discharge--- unless colonoscopy planned by GI. Will discuss. Patient in agreement. Can be downgraded to floor care.
--- NOTE | 2017-04-24 11:22 | PN ---
Progress Note, Physician History of Present Illness: Patient is a 71-year-old male with past medical history of cardiac stents currently on Plavix and aspirin, precancerous polyps in the colon status post colectomy, hypertension, hypothyroidism, diabetes mellitus, who presents emergency department today for bright red blood per rectum. Patient states he awoke at 2 AM this morning and had multiple bloody bowel movements. He states that the blood filled the toilet. His states that it was bright red but thick in color almost appearing like ketchup. This is never happened to him before. Denies lightheadedness, dizziness, LOC, head trauma, fatigue, shortness of breath, chest pain, frequency, urgency and hematuria. PMH cholelithiasis DM HTN Hypothyroidism morbid obesity Negative MIBI Stress Test Nov 2011 [facility]. PCI CELI of mLCx September 17, 2015 Dr. Kent - Current Medication List Current Medications: Active Medications Carvedilol (Coreg -) 6.25 mg PO BID [facility] Last Admin: 04/24/17 09:39 Dose: 6.25 mg Insulin Aspart (Novolog Vial Sliding Scale -) 1 vial SQ ACHS [facility] PRN Reason: Protocol Last Admin: 04/24/17 06:13 Dose: 2 units Latanoprost (Xalatan 0.005% Eye Drops -) 1 drop OU HS [facility] Last Admin: 04/23/17 21:23 Dose: 1 drop Levothyroxine Sodium (Synthroid -) 200 mcg PO DAILY@0700 [facility] Last Admin: 04/24/17 06:09 Dose: 200 mcg Pantoprazole Sodium (Protonix Iv) 40 mg IVPUSH DAILY [facility] Last Admin: 04/24/17 09:39 Dose: 40 mg - Objective Vital Signs: Vital Signs Temperature 97.9 F 04/24/17 06:00 Pulse Rate 60 04/24/17 06:00 Respiratory Rate 20 04/24/17 06:00 Blood Pressure 100/61 04/24/17 06:00 O2 Sat by Pulse Oximetry (%) 95 04/23/17 21:00 Eyes: Yes: WNL, Conjunctiva Clear, EOM Intact HENT: Yes: WNL, Atraumatic, Normocephalic Neck: Yes: WNL, Supple, Trachea Midline Cardiovascular: Yes: WNL, Regular Rate and Rhythm Respiratory: Yes: WNL, Regular, CTA Bilaterally Gastrointestinal: Yes: WNL, Normal Bowel Sounds Genitourinary: Yes: WNL Musculoskeletal: Yes: WNL Extremities: Yes: WNL Edema: No Integumentary: Yes: WNL Neurological: Yes: WNL, Alert, Oriented ...Motor Strength: WNL Psychiatric: Yes: WNL Labs: CBC, BMP 04/23/17 18:55 04/23/17 06:30 INR, PTT INR 1.21 (0.82-1.09) H 04/22/17 03:36 Problem List - Problems (1) Anemia Code(s): D64.9 - ANEMIA, UNSPECIFIED (2) Rectal bleeding Code(s): K62.5 - HEMORRHAGE OF ANUS AND RECTUM (3) Transfusion of blood during current hospitalisation Code(s): [id number] - (4) Abnormal laboratory test result Code(s): R89.9 - UNSP ABNORMAL FINDING IN SPECIMENS FROM OTH ORG/TISS (5) Colon tumor Code(s): D49.0 - NEOPLASM OF UNSPECIFIED BEHAVIOR OF DIGESTIVE SYSTEM (6) Contusion of hand, left Code(s): S60.222A - CONTUSION OF LEFT HAND, INITIAL ENCOUNTER Qualifiers: Encounter type: initial encounter Qualified Code(s): S60.222A - Contusion of left hand, initial encounter (7) Fever Code(s): R50.9 - FEVER, UNSPECIFIED (8) Flank pain Code(s): R10.9 - UNSPECIFIED ABDOMINAL PAIN (9) HTN (hypertension) Code(s): I10 - ESSENTIAL (PRIMARY) HYPERTENSION Qualifiers: Hypertension type: essential hypertension Qualified Code(s): I10 - Essential (primary) hypertension (10) Hypothyroidism Code(s): E03.9 - HYPOTHYROIDISM, UNSPECIFIED (11) Infiltrate noted on imaging study Code(s): R93.8 - ABNORMAL FINDINGS ON DIAGNOSTIC IMAGING OF BODY STRUCTURES (12) Pneumonia Code(s): J18.9 - PNEUMONIA, UNSPECIFIED ORGANISM Qualifiers: Pneumonia type: due to unspecified organism Laterality: right Lung location: lower lobe of lung Qualified Code(s): J18.9 - Pneumonia, unspecified organism (13) Renal colic on left side Code(s): N23 - UNSPECIFIED RENAL COLIC (14) Renal insufficiency, mild Code(s): N28.9 - DISORDER OF KIDNEY AND URETER, UNSPECIFIED (15) Rhabdomyolysis Code(s): M62.82 - RHABDOMYOLYSIS Qualifiers: Rhabdomyolysis type: non-traumatic Qualified Code(s): M62.82 - Rhabdomyolysis (16) Shock Code(s): R57.9 - SHOCK, UNSPECIFIED (17) UTI (lower urinary tract infection) Code(s): N39.0 - URINARY TRACT INFECTION, SITE NOT SPECIFIED Assessment/Plan GI bleed anemia cholelithiasis DM HTN Hypothyroidism morbid obesity Negative MIBI Stress Test Nov 2011 [facility]. PCI CELI of mLCx September 17, 2015 Dr. Kent Plan hold dapt prbc transfusion gi eval
[2017-04-24] MEDS ORDERED: INSULIN (NOVOLOG) ASPART 100 UNITS/ML 10ML VIAL ONE (12:06)
--- NOTE | 2017-04-24 13:39 | PN ---
GI Progress Note Subjective: For Dr. Anderson: No BM/Rectal bleeding today No abdominal pain - Objective Vital Signs: Vital Signs Temperature 98 F 04/24/17 10:00 Pulse Rate 60 04/24/17 10:00 Respiratory Rate 20 04/24/17 10:00 Blood Pressure 111/57 04/24/17 10:00 O2 Sat by Pulse Oximetry (%) 95 04/24/17 09:00 Eyes: No: Sclera Icterus Cardiovascular: Yes: Regular Rate and Rhythm Respiratory: Yes: CTA Bilaterally Gastrointestinal Inspection: No: Distention ...Auscultate: Yes: Normoactive Bowel Sounds ...Palpate: No: Hepatomegaly, Splenomegaly, Tenderness ...Percussion: Yes: Tympanitic Edema: Yes (trace B/L LE Edema) Neurological: Yes: Alert Labs: CBC, BMP 04/23/17 18:55 04/23/17 06:30 INR, PTT INR 1.21 (0.82-1.09) H 04/22/17 03:36 Hepatic Panel Total Bilirubin 0.8 mg/dL (0.2-1.0) 04/22/17 03:36 AST 18 U/L (15-37) D 04/22/17 03:36 ALT 22 U/L (12-78) D 04/22/17 03:36 Alkaline Phosphatase 93 U/L (45-117) 04/22/17 03:36 Albumin 3.1 g/dl (3.4-5.0) L 04/22/17 03:36 Problem List - Problems (1) Rectal bleeding Assessment/Plan: H/H stable without overt rectal bleeding currently. I discussed EGD/ Colonoscopy w/ Mr. Miller for further evauation. We discussed potential risks of the procedure like but not limited to bleeding, perforation requiring surgery to repair,infection, sedation medication effects all of which could be potentially life threatening. He has sgreed to the procedure. This will be performed 04/[address] Anderson. ASA and Plavix currently held Monitor for H/H and for signs of ongoing GI bleeding Code(s): K62.5 - HEMORRHAGE OF ANUS AND RECTUM
[2017-04-24] MEDS: LATANOPROST 0.005% OPHTH SOLN 2.5ML BOTTLE OU SCH (21:04)
[2017-04-25] MEDS: LEVOTHYROXINE NA 100 MCG TABLET (FP) PO SCH (06:01)
[2017-04-25] MEDS: INSULIN SLIDING SCALE (NOVOLOG) 1 VIAL SQ SCH ×4 (06:12→21:05)
[2017-04-25 06:53] LABS: BASO % 0.5 % (0-2.0); EOS % 3.2 % (0-4.5); HEMATOCRIT 30.7 % (35.4-49); HEMOGLOBIN 10.2 GM/dL (11.7-16.9); MCH 30.8 pg (25.7-33.7); MCHC 33.3 g/dl (32.0-35.9); MEAN CELL VOLUME 92.3 fl (80-96); MEAN PLT VOLUME 7.8 fl (7.5-11.1); NEUT % 54.3 % (42.8-82.8); PLATELET COUNT 165 K/MM3 (134-434); RBC 3.33 M/mm3 (4.00-5.60); RDW 15.1 % (11.9-15.9)
[2017-04-25 07:03] LABS: ALBUMIN 2.7 g/dl (3.4-5.0); ANION GAP 9 (8-16); BLOOD UREA NITROGEN 10 mg/dL (7-18); CALCIUM 7.9 mg/dL (8.5-10.1); CHLORIDE 104 mmol/L (98-107); CO2 27 mmol/L (21-32); CREATININE 0.7 mg/dL (0.7-1.3); GLUCOSE,RANDOM 146 mg/dL (74-106); POTASSIUM 3.8 mmol/L (3.5-5.1); SGOT/AST 20 U/L (15-37); SGPT/ALT 23 U/L (12-78); SODIUM 140 mmol/L (136-145); TOT PROT 5.6 g/dl (6.4-8.2)
[2017-04-25 07:04] LABS: ALK PHOS 76 U/L (45-117)
[2017-04-25] MEDS: PANTOPRAZOLE SODIUM 40 MG VIAL IVPUSH SCH (10:19)
[2017-04-25] MEDS: CARVEDILOL 6.25 MG TABLET (FP) PO SCH ×2 (10:19→21:05)
--- NOTE | 2017-04-25 11:32 | PN ---
Progress Note, Physician Chief Complaint: pt examined feels well no complaints - Current Medication List Current Medications: Active Medications Bisacodyl (Dulcolax -) 20 mg PO ONCE ONE Stop: 04/25/17 14:01 Carvedilol (Coreg -) 6.25 mg PO BID [facility] Last Admin: 04/25/17 10:19 Dose: 6.25 mg Insulin Aspart (Novolog Vial Sliding Scale -) 1 vial SQ ACHS [facility] PRN Reason: Protocol Latanoprost (Xalatan 0.005% Eye Drops -) 1 drop OU HS [facility] Levothyroxine Sodium (Synthroid -) 200 mcg PO DAILY@0700 [facility] Pantoprazole Sodium (Protonix Iv) 40 mg IVPUSH DAILY [facility] Last Admin: 04/25/17 10:19 Dose: 40 mg Polyethylene Glycol (Miralax (For Bowel Prep) -) 255 gm PO ONCE ONE Stop: 04/25/17 16:01 - Objective Vital Signs: Vital Signs Temperature 98.0 F 04/25/17 09:16 Pulse Rate 73 04/25/17 09:16 Respiratory Rate 18 04/25/17 09:16 Blood Pressure 118/71 04/25/17 09:16 O2 Sat by Pulse Oximetry (%) 97 04/25/17 09:16 Constitutional: Yes: No Distress, Calm Cardiovascular: Yes: Regular Rate and Rhythm Respiratory: Yes: CTA Bilaterally Gastrointestinal: Yes: Normal Bowel Sounds, Soft. No: Tenderness Edema: No Labs: CBC, BMP 04/25/17 05:30 04/25/17 05:30 INR, PTT INR 1.21 (0.82-1.09) H 04/22/17 03:36 Problem List - Problems (1) Anemia Code(s): D64.9 - ANEMIA, UNSPECIFIED Qualifiers: Anemia type: unspecified type Qualified Code(s): D64.9 - Anemia, unspecified (2) Diverticulosis Code(s): K57.90 - DVRTCLOS OF INTEST, PART UNSP, W/O PERF OR ABSCESS W/O BLEED (3) Rectal bleeding Code(s): K62.5 - HEMORRHAGE OF ANUS AND RECTUM (4) Transfusion of blood during current hospitalisation Code(s): [id number] - (5) HTN (hypertension) Code(s): I10 - ESSENTIAL (PRIMARY) HYPERTENSION Qualifiers: Hypertension type: essential hypertension Qualified Code(s): I10 - Essential (primary) hypertension (6) Hypothyroidism Code(s): E03.9 - HYPOTHYROIDISM, UNSPECIFIED Assessment/Plan PLAN s/p 1 unit PRBC no further GI bleeding plan for EGD/colonoscopy tomorrow-- plan to do this inpatient as he is off ASA and Plavix and needs cardiac monitoring , needs monitoring of electrolytes , also known to be non-compliant with prepping for endoscopic procedures.
--- NOTE | 2017-04-25 11:38 | PN ---
GI Progress Note Subjective: GI NOte: NO bleeding today. Denies abdominal pain, Hb stable - Objective Vital Signs: Vital Signs Temperature 98.0 F 04/25/17 09:16 Pulse Rate 73 04/25/17 09:16 Respiratory Rate 18 04/25/17 09:16 Blood Pressure 118/71 04/25/17 09:16 O2 Sat by Pulse Oximetry (%) 97 04/25/17 09:16 Laboratory Tests 04/22/17 04/22/17 04/23/17 03:36 06:44 18:55 Hgb 12.9 D 7.6 L D 11.3 L 04/25/17 05:30 Hgb 10.2 L Constitutional: No Distress ...Auscultate: Yes: Normoactive Bowel Sounds ...Palpate: Yes: Soft, Other (nontender) Labs: CBC, BMP 04/25/17 05:30 04/25/17 05:30 INR, PTT INR 1.21 (0.82-1.09) H 04/22/17 03:36 Problem List - Problems (1) Rectal bleeding Assessment/Plan: Suspect resolved diverticular bleed. Prepping for EGD and colonoscopy Code(s): K62.5 - HEMORRHAGE OF ANUS AND RECTUM
--- NOTE | 2017-04-25 13:41 | PN ---
Progress Note, Physician Chief Complaint: Pt OOB in chair; no chest pain or dyspnea; no dizziness. History of Present Illness: Patient is a 71-year-old white male (b [place]), with past medical history of CAD-->cardiac stents in 2016 currently on Plavix and aspirin, precancerous polyps in the colon--> colectomy, ISLD (moderate interstitial disease on chest CT 2015), hypertension, hypothyroidism, diabetes mellitus, obesity, cholelithiasis (CT 2011), who presents emergency department today for bright red blood per rectum. Patient states he awoke at 2 AM this morning and had multiple bloody bowel movements. He states that the blood filled the toilet. His states that it was bright red but thick in color almost appearing like ketchup. This had never happened to him before. Denies lightheadedness, dizziness, LOC, head trauma, fatigue, shortness of breath, chest pain, frequency , urgency and hematuria. Pt denies chest pain or dyspnea. He walks "3 hours a day", up to several miles at a time. - Current Medication List Current Medications: Active Medications Bisacodyl (Dulcolax -) 20 mg PO ONCE ONE Stop: 04/25/17 14:01 Carvedilol (Coreg -) 6.25 mg PO BID [facility] Last Admin: 04/25/17 10:19 Dose: 6.25 mg Insulin Aspart (Novolog Vial Sliding Scale -) 1 vial SQ ACHS [facility] PRN Reason: Protocol Last Admin: 04/25/17 12:36 Dose: 2 units Latanoprost (Xalatan 0.005% Eye Drops -) 1 drop OU HS [facility] Levothyroxine Sodium (Synthroid -) 200 mcg PO DAILY@0700 [facility] Pantoprazole Sodium (Protonix Iv) 40 mg IVPUSH DAILY [facility] Last Admin: 04/25/17 10:19 Dose: 40 mg - Objective Vital Signs: Vital Signs Temperature 98.0 F 04/25/17 09:16 Pulse Rate 73 04/25/17 09:16 Respiratory Rate 18 04/25/17 09:16 Blood Pressure 118/71 04/25/17 09:16 O2 Sat by Pulse Oximetry (%) 97 04/25/17 09:16 Constitutional: Yes: Well Nourished, Calm Eyes: Yes: WNL HENT: Yes: WNL Neck: Yes: WNL Cardiovascular: Yes: Murmur (2/6 systolic murmur, LSB-->apex), S1, S2 Respiratory: Yes: Regular, Diminished Gastrointestinal: Yes: Rectal Bleeding ...Rectal Exam: Yes: Guaiac Positive Genitourinary: No: Anuria Musculoskeletal: Yes: WNL Extremities: Yes: WNL Edema: No Peripheral Pulses WNL: Yes Integumentary: Yes: WNL Neurological: Yes: WNL Psychiatric: Yes: WNL Labs: CBC, BMP 04/25/17 05:30 04/25/17 05:30 INR, PTT INR 1.21 (0.82-1.09) H 04/22/17 03:36 Abnormal Lab Results 04/22/17 04/25/17 04/25/17 03:36 05:30 05:30 RBC 3.33 L Hgb 10.2 L Hct 30.7 L Random Glucose 146 H Calcium 7.9 L Total Protein 5.6 L Albumin 2.7 L HDL Cholesterol 35 L Crossmatch See Detail Problem List - Problems (1) Diabetes Code(s): E11.9 - TYPE 2 DIABETES MELLITUS WITHOUT COMPLICATIONS (2) Obesity Assessment/Plan: Pt walks about 3 hours every day. Nutritional couinseling would be of benefit. Daily weight. (Weight drop[ped to 169 lbs in 2013, per ; found to have colonic tumor). Code(s): E66.9 - OBESITY, UNSPECIFIED (3) Anemia Code(s): D64.9 - ANEMIA, UNSPECIFIED Qualifiers: Anemia type: unspecified type Qualified Code(s): D64.9 - Anemia, unspecified (4) Rectal bleeding Assessment/Plan: No blood in BM today, per RN. For EGD and colonscopy. ASA and clopidogrel held; hx CAD-->PCI ?2015 (when antiplatelets are able to be restarted, will likely continue ASA 81 mg daily and discontinue clopidogrel). f/u PRBCs. Code(s): K62.5 - HEMORRHAGE OF ANUS AND RECTUM (5) Colon tumor Code(s): D49.0 - NEOPLASM OF UNSPECIFIED BEHAVIOR OF DIGESTIVE SYSTEM (6) HTN (hypertension) Code(s): I10 - ESSENTIAL (PRIMARY) HYPERTENSION Qualifiers: Hypertension type: essential hypertension Qualified Code(s): I10 - Essential (primary) hypertension (7) Hypothyroidism Assessment/Plan: on Levothyroxine. 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 Code(s): J84.9 - INTERSTITIAL PULMONARY DISEASE, UNSPECIFIED (9) Stented coronary artery Assessment/Plan: see "Rectal Bleeding" Code(s): Z95.5 - PRESENCE OF CORONARY ANGIOPLASTY IMPLANT AND GRAFT
[2017-04-25] MEDS ORDERED: BISACODYL 5 MG TABLET.DR (FP) PO ONE (14:00)
[2017-04-25] MEDS ORDERED: PEG3350/SOD SULF,BICARB,CL/KCL 4,000 ML SOLN.RECON PO ONE (15:00)
[2017-04-25] MEDS ORDERED: POLYETHYLENE GLYCOL 3350 255 GM BTL PO ONE (16:00)
[2017-04-25 16:23] LABS: CHOLESTEROL 95 mg/dL (50-200); HDL CHOLESTEROL 35 mg/dL (40-60); LDL CHOLESTEROL (ONLY SJRH) 56 mg/dL (5-100); TRIGLYCERIDES 85 mg/dL (35-160)
[2017-04-25] MEDS ORDERED: INSULIN (NOVOLOG) ASPART 100 UNITS/ML 10ML VIAL ONE (20:36)
[2017-04-25] MEDS ORDERED: PT OWN MED DRAWER 7, Y5N ONE (20:36)
[2017-04-25] MEDS ORDERED: LATANOPROST 0.005% OPHTH SOLN 2.5ML BOTTLE OU SCH (22:00)
[2017-04-26] MEDS: INSULIN SLIDING SCALE (NOVOLOG) 1 VIAL SQ SCH ×2 (05:59→11:42)
[2017-04-26 06:08] LABS: BASO % 0.4 % (0-2.0); EOS % 3.3 % (0-4.5); HEMATOCRIT 30.4 % (35.4-49); HEMOGLOBIN 10.5 GM/dL (11.7-16.9); LYMPH % 27.7 % (8-40); MCH 31.5 pg (25.7-33.7); MCHC 34.5 g/dl (32.0-35.9); MEAN CELL VOLUME 91.2 fl (80-96); MEAN PLT VOLUME 8.1 fl (7.5-11.1); MONO % 10.8 % (3.8-10.2); NEUT % 57.8 % (42.8-82.8); PLATELET COUNT 198 K/MM3 (134-434); RBC 3.33 M/mm3 (4.00-5.60); RDW 14.9 % (11.9-15.9); WHITE BLOOD COUNT 7.7 K/mm3 (4.0-10.0)
[2017-04-26 06:19] LABS: ANION GAP 7 (8-16); BLOOD UREA NITROGEN 7 mg/dL (7-18); CALCIUM 7.4 mg/dL (8.5-10.1); CHLORIDE 105 mmol/L (98-107); CO2 30 mmol/L (21-32); CREATININE 0.7 mg/dL (0.7-1.3); GLUCOSE,RANDOM 134 mg/dL (74-106); POTASSIUM 3.9 mmol/L (3.5-5.1); SODIUM 142 mmol/L (136-145)
[2017-04-26] MEDS ORDERED: LEVOTHYROXINE NA 100 MCG TABLET (FP) PO SCH (07:00)
[2017-04-26] MEDS ORDERED: PROPOFOL 20 ML ONE ×3 (09:41)
[2017-04-26 10:46] VITALS: TEMP 97.7
[2017-04-26 10:51] VITALS: PULSE 63
[2017-04-26 11:05] VITALS: BP 125/73
--- NOTE | 2017-04-26 11:06 | PN ---
Progress Note, Physician History of Present Illness: Patient is a 71-year-old male with past medical history of cardiac stents currently on Plavix and aspirin, precancerous polyps in the colon status post colectomy, hypertension, hypothyroidism, diabetes mellitus, who presents emergency department today for bright red blood per rectum. Patient states he awoke at 2 AM this morning and had multiple bloody bowel movements. He states that the blood filled the toilet. His states that it was bright red but thick in color almost appearing like ketchup. This is never happened to him before. Denies lightheadedness, dizziness, LOC, head trauma, fatigue, shortness of breath, chest pain, frequency, urgency and hematuria. PMH cholelithiasis DM HTN Hypothyroidism morbid obesity Negative MIBI Stress Test Nov 2011 [facility]. PCI CELI of mLCx September 17, 2015 Dr. Kent - Current Medication List Current Medications: Active Medications Carvedilol (Coreg -) 6.25 mg PO BID [facility] Last Admin: 04/25/17 21:05 Dose: 6.25 mg Insulin Aspart (Novolog Vial Sliding Scale -) 1 vial SQ [facility] PRN Reason: Protocol Last Admin: 04/26/17 05:59 Dose: Not Given Latanoprost (Xalatan 0.005% Eye Drops -) 1 drop OU HS [facility] Last Admin: 04/25/17 21:05 Dose: 1 drop Levothyroxine Sodium (Synthroid -) 200 mcg PO DAILY@0700 [facility] Last Admin: 04/26/17 06:00 Dose: 200 mcg Pantoprazole Sodium (Protonix Iv) 40 mg IVPUSH DAILY [facility] Last Admin: 04/25/17 10:19 Dose: 40 mg - Objective Vital Signs: Vital Signs Temperature 97.7 F 04/26/17 10:35 Pulse Rate 63 04/26/17 11:05 Respiratory Rate 18 04/26/17 11:05 Blood Pressure 125/73 04/26/17 11:05 O2 Sat by Pulse Oximetry (%) 95 04/26/17 11:05 Eyes: Yes: WNL, Conjunctiva Clear, EOM Intact HENT: Yes: WNL, Atraumatic, Normocephalic Neck: Yes: WNL, Supple, Trachea Midline Cardiovascular: Yes: WNL, Regular Rate and Rhythm Respiratory: Yes: WNL, Regular, CTA Bilaterally Gastrointestinal: Yes: WNL, Normal Bowel Sounds Genitourinary: Yes: WNL Musculoskeletal: Yes: WNL Extremities: Yes: WNL Edema: No Integumentary: Yes: WNL Neurological: Yes: WNL, Alert, Oriented ...Motor Strength: WNL Psychiatric: Yes: WNL Labs: CBC, BMP 04/26/17 05:30 04/26/17 05:30 INR, PTT INR 1.21 (0.82-1.09) H 04/22/17 03:36 Problem List - Problems (1) Anemia Code(s): D64.9 - ANEMIA, UNSPECIFIED Qualifiers: Anemia type: unspecified type Qualified Code(s): D64.9 - Anemia, unspecified (2) Rectal bleeding Code(s): K62.5 - HEMORRHAGE OF ANUS AND RECTUM (3) Transfusion of blood during current hospitalisation Code(s): [id number] - (4) Abnormal laboratory test result Code(s): R89.9 - UNSP ABNORMAL FINDING IN SPECIMENS FROM OTH ORG/TISS (5) Colon tumor Code(s): D49.0 - NEOPLASM OF UNSPECIFIED BEHAVIOR OF DIGESTIVE SYSTEM (6) Contusion of hand, left Code(s): S60.222A - CONTUSION OF LEFT HAND, INITIAL ENCOUNTER Qualifiers: Encounter type: initial encounter Qualified Code(s): S60.222A - Contusion of left hand, initial encounter (7) Fever Code(s): R50.9 - FEVER, UNSPECIFIED (8) Flank pain Code(s): R10.9 - UNSPECIFIED ABDOMINAL PAIN (9) HTN (hypertension) Code(s): I10 - ESSENTIAL (PRIMARY) HYPERTENSION Qualifiers: Hypertension type: essential hypertension Qualified Code(s): I10 - Essential (primary) hypertension (10) Hypothyroidism Code(s): E03.9 - HYPOTHYROIDISM, UNSPECIFIED (11) Infiltrate noted on imaging study Code(s): R93.8 - ABNORMAL FINDINGS ON DIAGNOSTIC IMAGING OF BODY STRUCTURES (12) Pneumonia Code(s): J18.9 - PNEUMONIA, UNSPECIFIED ORGANISM Qualifiers: Pneumonia type: due to unspecified organism Laterality: right Lung location: lower lobe of lung Qualified Code(s): J18.9 - Pneumonia, unspecified organism (13) Renal colic on left side Code(s): N23 - UNSPECIFIED RENAL COLIC (14) Renal insufficiency, mild Code(s): N28.9 - DISORDER OF KIDNEY AND URETER, UNSPECIFIED (15) Rhabdomyolysis Code(s): M62.82 - RHABDOMYOLYSIS Qualifiers: Rhabdomyolysis type: non-traumatic Qualified Code(s): M62.82 - Rhabdomyolysis (16) Shock Code(s): R57.9 - SHOCK, UNSPECIFIED (17) UTI (lower urinary tract infection) Code(s): N39.0 - URINARY TRACT INFECTION, SITE NOT SPECIFIED Assessment/Plan - Problems (1) Diabetes Code(s): E11.9 - TYPE 2 DIABETES MELLITUS WITHOUT COMPLICATIONS (2) Obesity Assessment/Plan: Pt walks about 3 hours every day. Nutritional couinseling would be of benefit. Daily weight. (Weight drop[ped to 169 lbs in 2013, per ; found to have colonic tumor). Code(s): E66.9 - OBESITY, UNSPECIFIED (3) Anemia Code(s): D64.9 - ANEMIA, UNSPECIFIED Qualifiers: Anemia type: unspecified type Qualified Code(s): D64.9 - Anemia, unspecified (4) Rectal bleeding Assessment/Plan: No blood in BM today, per RN. For EGD and colonscopy. ASA and clopidogrel held; hx CAD-->PCI ?2016 (when antiplatelets are able to be restarted, will likely continue ASA 81 mg daily and discontinue clopidogrel). f/u PRBCs. Code(s): K62.5 - HEMORRHAGE OF ANUS AND RECTUM (5) Colon tumor Code(s): D49.0 - NEOPLASM OF UNSPECIFIED BEHAVIOR OF DIGESTIVE SYSTEM (6) HTN (hypertension) Code(s): I10 - ESSENTIAL (PRIMARY) HYPERTENSION Qualifiers: Hypertension type: essential hypertension Qualified Code(s): I10 - Essential (primary) hypertension (7) Hypothyroidism Assessment/Plan: on Levothyroxine. 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 Code(s): J84.9 - INTERSTITIAL PULMONARY DISEASE, UNSPECIFIED (9) Stented coronary artery Assessment/Plan: see "Rectal Bleeding" Code(s): Z95.5 - PRESENCE OF CORONARY ANGIOPLASTY IMPLANT AND GRAFT
--- NOTE | 2017-04-26 11:29 | PN ---
Progress Note (short form) - Note Progress Note: GI Procedures Note: Please see EGD and colonoscopy reports. No bleeding found. Suspect resolved diverticular bleed. Appreciate Dr. Maurice's note and discontinuance of Plavix. Discussed siuation with Miguel A and his . NO GI objections to discharge. Problem List - Problems (1) Rectal bleeding Code(s): K62.5 - HEMORRHAGE OF ANUS AND RECTUM
[2017-04-26] MEDS: CARVEDILOL 6.25 MG TABLET (FP) PO SCH (11:37)
[2017-04-26] MEDS: PANTOPRAZOLE SODIUM 40 MG VIAL IVPUSH SCH (11:38)
--- NOTE | 2017-04-26 11:39 | DS ---
Physical Examination Vital Signs: Vital Signs Temperature 97.7 F 04/26/17 11:14 Pulse Rate 63 04/26/17 11:14 Respiratory Rate 18 04/26/17 11:14 Blood Pressure 125/73 04/26/17 11:14 O2 Sat by Pulse Oximetry (%) 95 04/26/17 11:14 Constitutional: Yes: No Distress, Calm Cardiovascular: Yes: Regular Rate and Rhythm Respiratory: Yes: CTA Bilaterally Gastrointestinal: Yes: Normal Bowel Sounds, Soft, Abdomen, Obese. No: Tenderness Edema: No Labs: CBC, BMP 04/26/17 05:30 04/26/17 05:30 Discharge Summary Reason For Visit: ANEMIA,RECTAL HEMORRHAGE Current Active Problems Anemia (Acute) Diabetes (Acute) Diverticulosis (Acute) Interstitial lung disease (Acute) Obesity (Acute) Rectal bleeding (Acute) Stented coronary artery (Acute) Hospital Course: ADMISSION HISTORY History of Present Illness Initial Comments: 04/22/17 02:57 Patient is a 71-year-old male with past medical history of cardiac stents currently on Plavix and aspirin, precancerous polyps in the colon status post colectomy, hypertension, hypothyroidism, diabetes mellitus, who presents emergency department today for bright red blood per rectum. Patient states he awoke at 2 AM this morning and had multiple bloody bowel movements. He states that the blood filled the toilet. His states that it was bright red but thick in color almost appearing like ketchup. This is never happened to him before. Denies lightheadedness, dizziness, LOC, head trauma, fatigue, shortness of breath, chest pain, frequency, urgency and hematuria. Pt seen by me in ER at bedside so far no active bleeding-- only when he wipes himself No pain , dizziness last Plavix dose was yesterday Currently receiving one unit PRBC Pt is on ASA and Plavix for stent placed in Sep 2015 Hospitalization course- Seen by GI and Cardiology Received 1 unit PRBC No further episodes of GI bleeding Pt better Stable HCT EGD/Colonoscopy done today 04/26-- hiatal hernia on EGD and diverticulosis on Colonoscopy Stable for dc home-- resume ASA in one week and DC Plavix all together Condition: Fair - Instructions Diet, Activity, Other Instructions: resume ASPIRIN 1 week after , stop Plavix Referrals: Zeynep Momin MD [Primary Care Provider] - Disposition: HOME - Home Medications Comprehensive Discharge Medication List: Ambulatory Orders Carvedilol [Coreg] 6.25 mg PO BID 11/18/11 Glipizide [Glucotrol -] 10 mg PO BID 11/18/11 metFORMIN HCL [Glucophage] 1,000 mg PO BID 11/18/11 Latanoprost 0.005% Eye Drops [Xalatan 0.005% Eye Drops -] 1 drop OU DAILY Vitamin B Complex [B Complex # 1] 1 tab PO DAILY 08/09/13 Multivitamin/Iron/Folic Acid [One Daily Multivitamin-Iron Tb] 1 each PO DAILY Vit A/Vit C/Vit E/Zinc/Copper [Preservision Tablet] 1 tab PO DAILY 08/12/14 Tamsulosin HCl [Flomax -] 0.4 mg PO DAILY 30 Days capsule 09/07/14 Aspirin [ASA -] 81 mg PO DAILY 02/09/16 Clopidogrel Bisulfate [Plavix -] 75 mg PO DAILY 06/24/16 Levothyroxine [Synthroid -] 200 mcg PO DAILY 04/22/17
== END 2017-04-26 13:47 | disposition home or self-care (01) | DRG 378 ==
LOC: JER 02:39 → JERBED 10:00 → J4S 12:02
PROVIDERS: ADMIT Internal Medicine; ATTEND Internal Medicine
PROC: 30233H1 Transfusion of Nonautologous Whole Blood into Peripheral Vein, Percutaneous Approach (ICD-10-PCS; principal; 2017-04-22)
PROC: 0DJ08ZZ Inspection of Upper Intestinal Tract, Via Natural or Artificial Opening Endoscopic (ICD-10-PCS; 2017-04-26)
PROC: 0DJD8ZZ Inspection of Lower Intestinal Tract, Via Natural or Artificial Opening Endoscopic (ICD-10-PCS; 2017-04-26)
DX: K57.91 Diverticulosis of intestine, part unspecified, without perforation or abscess with bleeding (principal); J84.9 Interstitial pulmonary disease, unspecified; K44.9 Diaphragmatic hernia without obstruction or gangrene; Z98.0 Intestinal bypass and anastomosis status; E66.01 Morbid (severe) obesity due to excess calories; Z68.35 Body mass index [BMI] 35.0-35.9, adult; D64.9 Anemia, unspecified; E11.9 Type 2 diabetes mellitus without complications; Z86.010 Personal history of colon polyps; Z79.84 Long term (current) use of oral hypoglycemic drugs; I10 Essential (primary) hypertension; Z95.5 Presence of coronary angioplasty implant and graft; E03.9 Hypothyroidism, unspecified; Z90.49 Acquired absence of other specified parts of digestive tract; I25.10 Atherosclerotic heart disease of native coronary artery without angina pectoris; I25.2 Old myocardial infarction; N40.0 Benign prostatic hyperplasia without lower urinary tract symptoms; Z96.612 Presence of left artificial shoulder joint; F17.210 Nicotine dependence, cigarettes, uncomplicated
CPT/HCPCS: 36415; 36430; 71045-TC-FY; 80048; 80053; 80061; 81003; 82272; 82962; 83721; 84439; 84443; 85025; 85027; 85610; 86850; 86900; 86901; 86922; 93005; 93010; 99284-25; J7030; P9038; P9058

== ENCOUNTER 2020-02-24 10:36 | Emergency (ER) | payer BC, OTHER ==
[2020-02-24 10:46] VITALS: BP 103/73; PULSE 75; TEMP 98.3; BMI 30.7
== END 2020-02-24 12:41 | disposition home or self-care (01) ==
LOC: JERFT 10:36
DX: J18.9 Pneumonia, unspecified organism (principal)
CPT/HCPCS: 71046-TC-FY; 99283-25

== ENCOUNTER 2020-03-18 10:51 | Inpatient (IN) | payer BC ==
[2020-03-18] MEDS ORDERED: DEXAMETHASONE SOD PHOSPHATE 10 MG/1 ML VIAL IVPUSH ONE (12:10)
[2020-03-18 13:26] LABS: BASO % 0.2 % (0-2.0); EOS % 0.2 % (0-4.5); HEMATOCRIT 42.1 % (35.4-49); LYMPH % 4.4 % (8-40); MCH 31.6 pg (25.7-33.7); MCHC 33.2 g/dl (32.0-35.9); MEAN CELL VOLUME 95.3 fl (80-96); MEAN PLT VOLUME 7.9 fl (7.5-11.1); MONO % 5.6 % (3.8-10.2); NEUT % 89.6 % (42.8-82.8); PLATELET COUNT 316 K/MM3 (134-434); RBC 4.41 M/mm3 (4.00-5.60); RDW 13.9 % (11.9-15.9); WHITE BLOOD COUNT 14.8 K/mm3 (4.0-10.0)
[2020-03-18 13:32] LABS: INR 1.42 (0.83-1.09); PROTHROMBIN TIME (PATIENT) 17.3 SEC (9.7-13.0)
[2020-03-18 13:35] LABS: ACTIVATED PTT 26.9 SECONDS (25.2-36.5)
[2020-03-18 13:46] LABS: CHLORIDE 105 mmol/L (98-107); POTASSIUM 4.5 mmol/L (3.5-5.1); SODIUM 140 mmol/L (136-145)
[2020-03-18 13:47] LABS: CALCIUM 8.6 mg/dL (8.5-10.1)
[2020-03-18 13:48] LABS: ANION GAP 10 MMOL/L (8-16); CO2 24 mmol/L (21-32); GLUCOSE,RANDOM 175 mg/dL (74-106)
[2020-03-18 13:50] LABS: ALBUMIN 2.2 g/dl (3.4-5.0)
[2020-03-18 13:52] LABS: BILIRUBIN,DIRECT 0.2 mg/dL (0.0-0.2); CREATININE 1.1 mg/dL (0.55-1.3); SGOT/AST 32 U/L (15-37); SGPT/ALT 22 U/L (13-61); TOT PROT 6.3 g/dl (6.4-8.2)
[2020-03-18 13:54] LABS: ALK PHOS 80 U/L (45-117); BILIRUBIN,TOTAL 0.6 mg/dL (0.2-1)
[2020-03-18 13:55] LABS: LDH 409 U/L (87-246)
[2020-03-18] MEDS ORDERED: PIPERACILLIN/TAZOB 4.5 GM 4.5 GM/100 ML BAG IVPB ONE ×2 (13:59→15:11)
[2020-03-18] MEDS ORDERED: VANCOMYCIN 1 GM in D5W (PRE-DOCKED) 1,000 MG/250 ML IVPB ONE (13:59)
[2020-03-18] MEDS ORDERED: SODIUM CHLORIDE 500 ML IV STA (14:23)
[2020-03-18] MEDS ORDERED: DEXAMETHASONE SOD PHOSPHATE 10 MG/1 ML VIAL ONE (15:11)
[2020-03-18] MEDS: ALBUTEROL SO4 2.5/IPRATROPIUM 0.5 INH SOL 3 ML VIAL.NEB. NEB SCH ×2 (15:31→15:32)
[2020-03-18] MEDS ORDERED: VANCOMYCIN 1 GRAM (PRE-DOCKED) 1,000 MG/250 ML BAG IVPB ONE (15:38)
[2020-03-18] MEDS ORDERED: PIPERACILLIN/TAZOB 2.25 GM 2.25 GM in DEXTROSE 5%-WATER - 50 ML IVPB SCH (21:00)
[2020-03-18] MEDS ORDERED: PIPERACILLIN/TAZOBACTAM 2.25 GM VIAL IVPB ONE ×2 (21:23→22:29)
[2020-03-18] MEDS: ALBUTEROL SO4 HFA INHALER IH PRN (21:54)
[2020-03-18] MEDS: PIPERACILLIN/TAZOB 2.25 GM 2.25 GM in DEXTROSE 5%-WATER - 50 ML IVPB SCH (22:27)
[2020-03-19] MEDS: PIPERACILLIN/TAZOB 2.25 GM 2.25 GM in DEXTROSE 5%-WATER - 50 ML IVPB SCH ×2 (03:51→08:42)
[2020-03-19] MEDS: glipiZIDE 10 MG TABLET (FP) PO SCH ×2 (06:50→17:41)
[2020-03-19] MEDS: INSULIN SLIDING SCALE (NOVOLOG) 1 VIAL SQ SCH ×2 (06:51→17:41)
[2020-03-19] MEDS: ALBUTEROL SO4 HFA INHALER IH PRN (06:56)
[2020-03-19] MEDS ORDERED: LEVOTHYROXINE NA 200 MCG TABLET PO SCH (07:00)
[2020-03-19] MEDS ORDERED: LEVOTHYROXINE NA 100 MCG TABLET (FP) PO SCH (07:00)
[2020-03-19] MEDS ORDERED: PIPERACILLIN/TAZOBACTAM 2.25 GM VIAL IVPB ONE (08:33)
[2020-03-19] MEDS ORDERED: DEXTROSE 5%-WATER - 50 ML IVPB ONE ×2 (08:33→17:28)
[2020-03-19 08:42] LABS: BASO % 0.3 % (0-2.0); HEMATOCRIT 39.4 % (35.4-49); HEMOGLOBIN 12.8 GM/dL (11.7-16.9); LYMPH % 7.6 % (8-40); MCH 31.2 pg (25.7-33.7); MCHC 32.5 g/dl (32.0-35.9); MEAN PLT VOLUME 8.1 fl (7.5-11.1); MONO % 7.1 % (3.8-10.2); PLATELET COUNT 282 K/MM3 (134-434); RBC 4.11 M/mm3 (4.00-5.60); RDW 13.9 % (11.9-15.9); WHITE BLOOD COUNT 16.1 K/mm3 (4.0-10.0)
[2020-03-19 08:54] LABS: POTASSIUM 4.5 mmol/L (3.5-5.1)
[2020-03-19 08:57] LABS: ALBUMIN 2.2 g/dl (3.4-5.0); BLOOD UREA NITROGEN 34.3 mg/dL (7-18); CALCIUM 8.4 mg/dL (8.5-10.1)
[2020-03-19 09:00] LABS: CREATININE 0.9 mg/dL (0.55-1.3)
[2020-03-19 09:02] LABS: BILIRUBIN,TOTAL 0.5 mg/dL (0.2-1); TOT PROT 6.2 g/dl (6.4-8.2)
[2020-03-19] MEDS ORDERED: PT OWN MED DRAWER 7, Y5N ONE (09:38)
[2020-03-19] MEDS: TAMSULOSIN HCL 0.4 MG CAP PO SCH (09:40)
[2020-03-19] MEDS ORDERED: VANCOMYCIN 1 GM in D5W (PRE-DOCKED) 1,000 MG/250 ML IVPB ONE (10:27)
[2020-03-19] MEDS: LATANOPROST 0.005% OPHTH SOLN 2.5ML BOTTLE OU SCH (10:48)
[2020-03-19] MEDS: methylPREDNISolone NA SUCC 40 MG/1 ML VIAL IVPUSH SCH ×2 (10:49→17:40)
[2020-03-19 11:15] LABS: N-TERMINAL BNP 348.1 pg/ml (5-125)
[2020-03-19] MEDS: ALBUTEROL SO4 HFA INHALER IH SCH ×2 (14:44→22:19)
[2020-03-19] MEDS ORDERED: glipiZIDE 5 MG TABLET (FP) ONE (17:27)
[2020-03-19] MEDS ORDERED: PIPERACILLIN/TAZOBACTAM 3.375 GM VIAL IVPB ONE (17:28)
[2020-03-19] MEDS: PIPERACILLIN/TAZOB 3.375 GM 3.375 GM in DEXTROSE 5%-WATER - 50 ML IVPB SCH (17:40)
[2020-03-19] MEDS: VANCOMYCIN 1 GRAM (PRE-DOCKED) 1,000 MG/250 ML BAG IVPB SCH (22:26)
[2020-03-20] MEDS ORDERED: DEXTROSE 5%-WATER - 50 ML IVPB ONE ×3 (01:50→17:11)
[2020-03-20] MEDS ORDERED: PIPERACILLIN/TAZOBACTAM 3.375 GM VIAL IVPB ONE ×3 (01:50→17:11)
[2020-03-20] MEDS: methylPREDNISolone NA SUCC 40 MG/1 ML VIAL IVPUSH SCH ×3 (01:55→17:12)
[2020-03-20] MEDS: PIPERACILLIN/TAZOB 3.375 GM 3.375 GM in DEXTROSE 5%-WATER - 50 ML IVPB SCH ×3 (01:55→17:12)
[2020-03-20] MEDS: ALBUTEROL SO4 HFA INHALER IH SCH ×3 (06:19→21:52)
[2020-03-20] MEDS: INSULIN SLIDING SCALE (NOVOLOG) 1 VIAL SQ SCH ×2 (06:21→17:10)
[2020-03-20] MEDS ORDERED: glipiZIDE 5 MG TABLET (FP) ONE (06:23)
[2020-03-20] MEDS: glipiZIDE 10 MG TABLET (FP) PO SCH (06:23)
[2020-03-20] MEDS: LEVOTHYROXINE NA 150 MCG TABLET PO SCH (06:24)
[2020-03-20] MEDS: VANCOMYCIN 1 GRAM (PRE-DOCKED) 1,000 MG/250 ML BAG IVPB SCH (10:09)
[2020-03-20] MEDS: TAMSULOSIN HCL 0.4 MG CAP PO SCH (10:09)
[2020-03-20] MEDS: LATANOPROST 0.005% OPHTH SOLN 2.5ML BOTTLE OU SCH (10:09)
[2020-03-20 23:11] LABS: URINE APPEARANCE CLOUDY; URINE BILIRUBIN NEGATIVE (NEGATIVE); URINE COLOR YELLOW; URINE GLUCOSE (UA) 2+ (NEGATIVE); URINE KETONE NEGATIVE (NEGATIVE); URINE LEUK ESTERASE NEGATIVE (NEGATIVE); URINE NITRITE NEGATIVE (NEGATIVE); URINE PROTEIN NEGATIVE (NEGATIVE); URINE UROBILINOGEN 0.2 mg/dL (0.2-1.0)
[2020-03-21] MEDS ORDERED: PIPERACILLIN/TAZOBACTAM 3.375 GM VIAL IVPB ONE ×3 (01:36→18:43)
[2020-03-21] MEDS ORDERED: DEXTROSE 5%-WATER - 50 ML IVPB ONE ×3 (01:36→18:44)
[2020-03-21] MEDS: PIPERACILLIN/TAZOB 3.375 GM 3.375 GM in DEXTROSE 5%-WATER - 50 ML IVPB SCH ×3 (01:55→19:09)
[2020-03-21] MEDS: methylPREDNISolone NA SUCC 40 MG/1 ML VIAL IVPUSH SCH ×3 (01:55→18:47)
[2020-03-21] MEDS ORDERED: INSULIN (NOVOLOG) ASPART 100 UNITS/ML 10ML VIAL ONE (06:09)
[2020-03-21] MEDS: LEVOTHYROXINE NA 150 MCG TABLET PO SCH (06:11)
[2020-03-21] MEDS: INSULIN SLIDING SCALE (NOVOLOG) 1 VIAL SQ SCH ×2 (06:11→18:40)
[2020-03-21] MEDS: ALBUTEROL SO4 HFA INHALER IH SCH ×3 (06:11→21:20)
[2020-03-21 09:23] LABS: BASO % 0.3 % (0-2.0); LYMPH % 4.9 % (8-40); MCH 31.4 pg (25.7-33.7); MCHC 32.6 g/dl (32.0-35.9); MEAN CELL VOLUME 96.2 fl (80-96); MEAN PLT VOLUME 8.2 fl (7.5-11.1); MONO % 5.7 % (3.8-10.2); NEUT % 89.1 % (42.8-82.8); PLATELET COUNT 281 K/MM3 (134-434); RBC 4.16 M/mm3 (4.00-5.60); WHITE BLOOD COUNT 18.4 K/mm3 (4.0-10.0)
[2020-03-21 09:26] LABS: POTASSIUM 4.7 mmol/L (3.5-5.1)
[2020-03-21 09:29] LABS: CALCIUM 8.4 mg/dL (8.5-10.1)
[2020-03-21 09:30] LABS: ALBUMIN 2.2 g/dl (3.4-5.0); BLOOD UREA NITROGEN 22.8 mg/dL (7-18)
[2020-03-21 09:33] LABS: CREATININE 0.8 mg/dL (0.55-1.3)
[2020-03-21 09:34] LABS: BILIRUBIN,TOTAL 0.6 mg/dL (0.2-1); TOT PROT 5.9 g/dl (6.4-8.2)
[2020-03-21] MEDS: TAMSULOSIN HCL 0.4 MG CAP PO SCH (11:48)
[2020-03-21 13:06] LABS: BODY FLUID ALBUMIN 1.6 g/dL (Not Estab.)
[2020-03-21 14:53] VITALS: BMI 29.5
[2020-03-21] MEDS: LATANOPROST 0.005% OPHTH SOLN 2.5ML BOTTLE OU SCH (18:35)
[2020-03-21] MEDS ORDERED: oxyCODONE HCL 5 MG TABLET PO PRN (20:55)
[2020-03-21] MEDS: ACETAMINOPHEN 325 MG TABLET (FP) PO PRN (21:25)
[2020-03-22] MEDS ORDERED: PIPERACILLIN/TAZOBACTAM 3.375 GM VIAL IVPB ONE ×3 (01:46→18:58)
[2020-03-22] MEDS ORDERED: DEXTROSE 5%-WATER - 50 ML IVPB ONE ×3 (01:46→18:58)
[2020-03-22] MEDS: methylPREDNISolone NA SUCC 40 MG/1 ML VIAL IVPUSH SCH ×3 (01:50→19:14)
[2020-03-22] MEDS: PIPERACILLIN/TAZOB 3.375 GM 3.375 GM in DEXTROSE 5%-WATER - 50 ML IVPB SCH ×3 (01:50→19:01)
[2020-03-22] MEDS: ALBUTEROL SO4 HFA INHALER IH SCH ×3 (05:56→21:36)
[2020-03-22] MEDS: INSULIN SLIDING SCALE (NOVOLOG) 1 VIAL SQ SCH ×2 (06:04→19:10)
[2020-03-22] MEDS: LEVOTHYROXINE NA 150 MCG TABLET PO SCH (06:04)
[2020-03-22] MEDS: LATANOPROST 0.005% OPHTH SOLN 2.5ML BOTTLE OU SCH (12:38)
[2020-03-22] MEDS: TAMSULOSIN HCL 0.4 MG CAP PO SCH (12:38)
[2020-03-22] MEDS: ACETAMINOPHEN 325 MG TABLET (FP) PO PRN (21:15)
[2020-03-22] MEDS: INSULIN (LEVEMIR) 100 UNITS/ML UNITS SQ SCH (21:36)
[2020-03-23] MEDS ORDERED: PIPERACILLIN/TAZOBACTAM 3.375 GM VIAL IVPB ONE ×3 (01:26→17:43)
[2020-03-23] MEDS ORDERED: DEXTROSE 5%-WATER - 50 ML IVPB ONE ×3 (01:26→17:43)
[2020-03-23] MEDS: PIPERACILLIN/TAZOB 3.375 GM 3.375 GM in DEXTROSE 5%-WATER - 50 ML IVPB SCH ×3 (01:40→17:46)
[2020-03-23] MEDS: methylPREDNISolone NA SUCC 40 MG/1 ML VIAL IVPUSH SCH ×3 (01:40→18:58)
[2020-03-23] MEDS: INSULIN SLIDING SCALE (NOVOLOG) 1 VIAL SQ SCH ×2 (06:03→17:47)
[2020-03-23] MEDS: ALBUTEROL SO4 HFA INHALER IH SCH ×3 (06:03→21:38)
[2020-03-23] MEDS: LEVOTHYROXINE NA 150 MCG TABLET PO SCH (06:03)
[2020-03-23 09:11] LABS: BASO % 0.3 % (0-2.0); HEMATOCRIT 43.4 % (35.4-49); HEMOGLOBIN 14.4 GM/dL (11.7-16.9); LYMPH % 5.9 % (8-40); MCH 31.5 pg (25.7-33.7); MCHC 33.1 g/dl (32.0-35.9); MEAN CELL VOLUME 95.4 fl (80-96); MEAN PLT VOLUME 8.1 fl (7.5-11.1); MONO % 6.5 % (3.8-10.2); NEUT % 87.3 % (42.8-82.8); PLATELET COUNT 293 K/MM3 (134-434); RBC 4.55 M/mm3 (4.00-5.60); RDW 14.1 % (11.9-15.9); WHITE BLOOD COUNT 18.1 K/mm3 (4.0-10.0)
[2020-03-23] MEDS: TAMSULOSIN HCL 0.4 MG CAP PO SCH (09:15)
[2020-03-23 10:14] LABS: POTASSIUM 4.5 mmol/L (3.5-5.1)
[2020-03-23 10:51] LABS: ALBUMIN 2.1 g/dl (3.4-5.0); BLOOD UREA NITROGEN 24.4 mg/dL (7-18); CALCIUM 8.6 mg/dL (8.5-10.1)
[2020-03-23 10:55] LABS: BILIRUBIN,TOTAL 0.7 mg/dL (0.2-1); CREATININE 0.8 mg/dL (0.55-1.3); TOT PROT 5.9 g/dl (6.4-8.2)
[2020-03-23] MEDS: LATANOPROST 0.005% OPHTH SOLN 2.5ML BOTTLE OU SCH (11:19)
[2020-03-23] MEDS: ACETAMINOPHEN 325 MG TABLET (FP) PO PRN (21:36)
[2020-03-23] MEDS: INSULIN (LEVEMIR) 100 UNITS/ML UNITS SQ SCH (21:37)
[2020-03-24] MEDS ORDERED: PIPERACILLIN/TAZOBACTAM 3.375 GM VIAL IVPB ONE ×3 (02:53→15:16)
[2020-03-24] MEDS ORDERED: DEXTROSE 5%-WATER - 50 ML IVPB ONE ×3 (02:53→15:16)
[2020-03-24] MEDS: methylPREDNISolone NA SUCC 40 MG/1 ML VIAL IVPUSH SCH ×3 (03:08→21:21)
[2020-03-24] MEDS: PIPERACILLIN/TAZOB 3.375 GM 3.375 GM in DEXTROSE 5%-WATER - 50 ML IVPB SCH ×3 (03:08→17:11)
[2020-03-24] MEDS: ALBUTEROL SO4 HFA INHALER IH SCH ×3 (06:14→21:26)
[2020-03-24] MEDS: LEVOTHYROXINE NA 150 MCG TABLET PO SCH (06:15)
[2020-03-24] MEDS: INSULIN SLIDING SCALE (NOVOLOG) 1 VIAL SQ SCH ×2 (06:17→15:44)
[2020-03-24] MEDS: TAMSULOSIN HCL 0.4 MG CAP PO SCH (09:13)
[2020-03-24] MEDS: LATANOPROST 0.005% OPHTH SOLN 2.5ML BOTTLE OU SCH (09:13)
[2020-03-24] MEDS: INSULIN (LEVEMIR) 100 UNITS/ML UNITS SQ SCH (21:20)
[2020-03-24] MEDS: ACETAMINOPHEN 325 MG TABLET (FP) PO PRN (21:22)
[2020-03-25] MEDS ORDERED: PIPERACILLIN/TAZOBACTAM 3.375 GM VIAL IVPB ONE ×3 (01:28→15:44)
[2020-03-25] MEDS ORDERED: DEXTROSE 5%-WATER - 50 ML IVPB ONE ×3 (01:29→15:44)
[2020-03-25] MEDS: PIPERACILLIN/TAZOB 3.375 GM 3.375 GM in DEXTROSE 5%-WATER - 50 ML IVPB SCH ×3 (01:32→17:07)
[2020-03-25] MEDS: ACETAMINOPHEN 325 MG TABLET (FP) PO PRN ×2 (06:26→19:36)
[2020-03-25] MEDS: ALBUTEROL SO4 HFA INHALER IH SCH ×3 (06:27→22:00)
[2020-03-25] MEDS: INSULIN SLIDING SCALE (NOVOLOG) 1 VIAL SQ SCH ×2 (06:27→15:32)
[2020-03-25] MEDS: LEVOTHYROXINE NA 150 MCG TABLET PO SCH (06:27)
[2020-03-25] MEDS ORDERED: PT OWN MED DRAWER 7, Y5N ONE (09:00)
[2020-03-25] MEDS: LATANOPROST 0.005% OPHTH SOLN 2.5ML BOTTLE OU SCH (09:12)
[2020-03-25] MEDS: methylPREDNISolone NA SUCC 40 MG/1 ML VIAL IVPUSH SCH (09:12)
[2020-03-25] MEDS: TAMSULOSIN HCL 0.4 MG CAP PO SCH (09:12)
[2020-03-25 09:31] LABS: HEMATOCRIT 44.7 % (35.4-49); MCH 31.8 pg (25.7-33.7); MCHC 33.5 g/dl (32.0-35.9); MEAN PLT VOLUME 7.9 fl (7.5-11.1); PLATELET COUNT 306 K/MM3 (134-434); RDW 14.3 % (11.9-15.9); WHITE BLOOD COUNT 18.6 K/mm3 (4.0-10.0)
[2020-03-25 10:01] LABS: POTASSIUM 4.9 mmol/L (3.5-5.1)
[2020-03-25 10:18] LABS: ALBUMIN 2.1 g/dl (3.4-5.0); BLOOD UREA NITROGEN 26.4 mg/dL (7-18); CALCIUM 8.9 mg/dL (8.5-10.1)
[2020-03-25 10:22] LABS: BILIRUBIN,TOTAL 0.7 mg/dL (0.2-1); TOT PROT 5.7 g/dl (6.4-8.2)
[2020-03-25] MEDS: INSULIN (LEVEMIR) 100 UNITS/ML UNITS SQ SCH (21:58)
[2020-03-26] MEDS ORDERED: PIPERACILLIN/TAZOBACTAM 3.375 GM VIAL IVPB ONE ×3 (02:35→17:08)
[2020-03-26] MEDS ORDERED: DEXTROSE 5%-WATER - 50 ML IVPB ONE ×3 (02:35→17:08)
[2020-03-26] MEDS: PIPERACILLIN/TAZOB 3.375 GM 3.375 GM in DEXTROSE 5%-WATER - 50 ML IVPB SCH ×3 (02:40→17:37)
[2020-03-26] MEDS: ACETAMINOPHEN 325 MG TABLET (FP) PO PRN ×2 (02:40→18:58)
[2020-03-26] MEDS: LEVOTHYROXINE NA 150 MCG TABLET PO SCH (06:38)
[2020-03-26] MEDS: ALBUTEROL SO4 HFA INHALER IH SCH ×3 (06:41→21:30)
[2020-03-26] MEDS: INSULIN SLIDING SCALE (NOVOLOG) 1 VIAL SQ SCH ×2 (06:41→16:49)
[2020-03-26] MEDS ORDERED: methylPREDNISolone NA SUCC 40 MG/1 ML VIAL IVPUSH SCH (10:00)
[2020-03-26] MEDS: TAMSULOSIN HCL 0.4 MG CAP PO SCH (11:42)
[2020-03-26] MEDS: LATANOPROST 0.005% OPHTH SOLN 2.5ML BOTTLE OU SCH (11:43)
[2020-03-26] MEDS: INSULIN (LEVEMIR) 100 UNITS/ML UNITS SQ SCH (21:29)
[2020-03-27] MEDS ORDERED: DEXTROSE 5%-WATER - 50 ML IVPB ONE ×3 (01:41→17:32)
[2020-03-27] MEDS ORDERED: PIPERACILLIN/TAZOBACTAM 3.375 GM VIAL IVPB ONE ×3 (01:41→17:32)
[2020-03-27] MEDS: PIPERACILLIN/TAZOB 3.375 GM 3.375 GM in DEXTROSE 5%-WATER - 50 ML IVPB SCH ×3 (02:27→17:40)
[2020-03-27] MEDS: ACETAMINOPHEN 325 MG TABLET (FP) PO PRN ×3 (04:05→21:28)
[2020-03-27] MEDS: ALBUTEROL SO4 HFA INHALER IH SCH ×3 (06:33→21:29)
[2020-03-27] MEDS: INSULIN SLIDING SCALE (NOVOLOG) 1 VIAL SQ SCH ×2 (06:33→16:46)
[2020-03-27] MEDS: LEVOTHYROXINE NA 150 MCG TABLET PO SCH (06:33)
[2020-03-27] MEDS: TAMSULOSIN HCL 0.4 MG CAP PO SCH (09:46)
[2020-03-27] MEDS: LATANOPROST 0.005% OPHTH SOLN 2.5ML BOTTLE OU SCH (09:49)
[2020-03-27] MEDS: INSULIN (LEVEMIR) 100 UNITS/ML UNITS SQ SCH (21:31)
[2020-03-28] MEDS ORDERED: DEXTROSE 5%-WATER - 50 ML IVPB ONE ×2 (01:00→10:58)
[2020-03-28] MEDS ORDERED: PIPERACILLIN/TAZOBACTAM 3.375 GM VIAL IVPB ONE ×2 (01:00→10:57)
[2020-03-28] MEDS: PIPERACILLIN/TAZOB 3.375 GM 3.375 GM in DEXTROSE 5%-WATER - 50 ML IVPB SCH ×2 (01:18→11:17)
[2020-03-28] MEDS: LEVOTHYROXINE NA 150 MCG TABLET PO SCH (06:32)
[2020-03-28] MEDS: ALBUTEROL SO4 HFA INHALER IH SCH ×2 (06:32→22:10)
[2020-03-28] MEDS: INSULIN SLIDING SCALE (NOVOLOG) 1 VIAL SQ SCH ×2 (06:32→17:02)
[2020-03-28] MEDS: TAMSULOSIN HCL 0.4 MG CAP PO SCH (11:16)
[2020-03-28] MEDS: LATANOPROST 0.005% OPHTH SOLN 2.5ML BOTTLE OU SCH (11:17)
[2020-03-28] MEDS: ACETAMINOPHEN 325 MG TABLET (FP) PO PRN (17:01)
[2020-03-28] MEDS ORDERED: DOCUSATE SODIUM 100 MG CAPSULE (FP) PO PRN (20:45)
[2020-03-28] MEDS: INSULIN (LEVEMIR) 100 UNITS/ML UNITS SQ SCH (22:10)
[2020-03-28] MEDS: oxyCODONE HCL 5 MG TABLET PO PRN (22:11)
[2020-03-29] MEDS ORDERED: DEXTROSE 5%-WATER - 50 ML IVPB ONE ×3 (02:44→17:12)
[2020-03-29] MEDS ORDERED: PIPERACILLIN/TAZOBACTAM 3.375 GM VIAL IVPB ONE ×3 (02:44→17:12)
[2020-03-29] MEDS: PIPERACILLIN/TAZOB 3.375 GM 3.375 GM in DEXTROSE 5%-WATER - 50 ML IVPB SCH ×4 (02:50→17:53)
[2020-03-29] MEDS: INSULIN SLIDING SCALE (NOVOLOG) 1 VIAL SQ SCH ×2 (06:22→17:54)
[2020-03-29] MEDS: ALBUTEROL SO4 HFA INHALER IH SCH ×4 (06:22→21:40)
[2020-03-29] MEDS: LEVOTHYROXINE NA 150 MCG TABLET PO SCH (06:23)
[2020-03-29] MEDS: oxyCODONE HCL 5 MG TABLET PO PRN ×2 (09:36→23:10)
[2020-03-29] MEDS: TAMSULOSIN HCL 0.4 MG CAP PO SCH (09:36)
[2020-03-29] MEDS: LATANOPROST 0.005% OPHTH SOLN 2.5ML BOTTLE OU SCH (10:00)
[2020-03-29] MEDS ORDERED: MORPHINE SULFATE 2 MG/ML VIAL IVPUSH PRN (13:28)
[2020-03-29] MEDS: INSULIN (LEVEMIR) 100 UNITS/ML UNITS SQ SCH (21:40)
[2020-03-30] MEDS ORDERED: PIPERACILLIN/TAZOBACTAM 3.375 GM VIAL IVPB ONE ×3 (02:10→17:44)
[2020-03-30] MEDS ORDERED: DEXTROSE 5%-WATER - 50 ML IVPB ONE ×3 (02:10→17:45)
[2020-03-30] MEDS: PIPERACILLIN/TAZOB 3.375 GM 3.375 GM in DEXTROSE 5%-WATER - 50 ML IVPB SCH ×3 (02:30→18:21)
[2020-03-30] MEDS: LEVOTHYROXINE NA 150 MCG TABLET PO SCH (06:53)
[2020-03-30] MEDS: ALBUTEROL SO4 HFA INHALER IH SCH ×3 (06:54→21:57)
[2020-03-30] MEDS: INSULIN SLIDING SCALE (NOVOLOG) 1 VIAL SQ SCH ×2 (06:54→17:13)
[2020-03-30] MEDS: TAMSULOSIN HCL 0.4 MG CAP PO SCH (09:12)
[2020-03-30] MEDS: LATANOPROST 0.005% OPHTH SOLN 2.5ML BOTTLE OU SCH (09:12)
[2020-03-30 09:23] LABS: BASO % 0.6 % (0-2.0); EOS % 0.4 % (0-4.5); HEMATOCRIT 40.9 % (35.4-49); HEMOGLOBIN 13.6 GM/dL (11.7-16.9); LYMPH % 5.5 % (8-40); MCH 31.5 pg (25.7-33.7); MCHC 33.1 g/dl (32.0-35.9); MEAN PLT VOLUME 8.4 fl (7.5-11.1); MONO % 7.7 % (3.8-10.2); NEUT % 85.8 % (42.8-82.8); PLATELET COUNT 192 K/MM3 (134-434); RBC 4.31 M/mm3 (4.00-5.60); RDW 14.5 % (11.9-15.9); WHITE BLOOD COUNT 16.8 K/mm3 (4.0-10.0)
[2020-03-30 09:52] LABS: POTASSIUM 4.2 mmol/L (3.5-5.1)
[2020-03-30 10:00] LABS: ALBUMIN 1.6 g/dl (3.4-5.0); BLOOD UREA NITROGEN 22.5 mg/dL (7-18)
[2020-03-30 10:01] LABS: BILIRUBIN,TOTAL 0.8 mg/dL (0.2-1)
[2020-03-30 10:02] LABS: CALCIUM 8.2 mg/dL (8.5-10.1); TOT PROT 5.1 g/dl (6.4-8.2)
[2020-03-30 10:03] LABS: CREATININE 0.7 mg/dL (0.55-1.3)
[2020-03-30] MEDS: oxyCODONE HCL 5 MG TABLET PO PRN (21:49)
[2020-03-30] MEDS: INSULIN (LEVEMIR) 100 UNITS/ML UNITS SQ SCH (21:59)
[2020-03-31] MEDS ORDERED: DEXTROSE 5%-WATER - 50 ML IVPB ONE ×3 (01:02→17:40)
[2020-03-31] MEDS ORDERED: PIPERACILLIN/TAZOBACTAM 3.375 GM VIAL IVPB ONE ×3 (01:02→17:40)
[2020-03-31] MEDS: PIPERACILLIN/TAZOB 3.375 GM 3.375 GM in DEXTROSE 5%-WATER - 50 ML IVPB SCH ×3 (01:51→17:59)
[2020-03-31] MEDS: INSULIN SLIDING SCALE (NOVOLOG) 1 VIAL SQ SCH ×2 (06:31→17:24)
[2020-03-31] MEDS: LEVOTHYROXINE NA 150 MCG TABLET PO SCH (06:31)
[2020-03-31] MEDS: ALBUTEROL SO4 HFA INHALER IH SCH ×3 (06:32→21:41)
[2020-03-31] MEDS: LATANOPROST 0.005% OPHTH SOLN 2.5ML BOTTLE OU SCH (10:50)
[2020-03-31] MEDS: TAMSULOSIN HCL 0.4 MG CAP PO SCH (10:50)
[2020-03-31] MEDS: oxyCODONE HCL 5 MG TABLET PO PRN (10:52)
[2020-03-31] MEDS: INSULIN (LEVEMIR) 100 UNITS/ML UNITS SQ SCH (21:40)
[2020-04-01] MEDS ORDERED: PIPERACILLIN/TAZOBACTAM 3.375 GM VIAL IVPB ONE ×3 (00:37→17:33)
[2020-04-01] MEDS ORDERED: DEXTROSE 5%-WATER - 50 ML IVPB ONE ×3 (00:37→17:33)
[2020-04-01] MEDS: PIPERACILLIN/TAZOB 3.375 GM 3.375 GM in DEXTROSE 5%-WATER - 50 ML IVPB SCH ×3 (01:18→17:51)
[2020-04-01] MEDS: INSULIN SLIDING SCALE (NOVOLOG) 1 VIAL SQ SCH ×2 (06:09→18:13)
[2020-04-01] MEDS: LEVOTHYROXINE NA 150 MCG TABLET PO SCH (06:10)
[2020-04-01] MEDS: ALBUTEROL SO4 HFA INHALER IH SCH ×3 (06:11→22:13)
[2020-04-01] MEDS: LATANOPROST 0.005% OPHTH SOLN 2.5ML BOTTLE OU SCH (10:26)
[2020-04-01] MEDS: TAMSULOSIN HCL 0.4 MG CAP PO SCH (10:26)
[2020-04-01] MEDS ORDERED: SODIUM CHLORIDE 500 ML IV STA (12:32)
[2020-04-01 13:15] LABS: ARTERIAL BLD GAS O2 SATURATION 97.7 mmHg (95-98); ARTERIAL BLOOD GAS BASE EXCESS -4.2 mmol/L (-2-2); ARTERIAL BLOOD GAS PO2 101.3 mmHg (80-100); ARTERIAL BLOOD GAS pH 7.405 (7.350-7.450)
[2020-04-01 13:19] LABS: ALLENS TEST POSITIVE
[2020-04-01 13:20] LABS: VENT RATE 14
[2020-04-01 13:32] LABS: BASO % 0.3 % (0-2.0); EOS % 0.2 % (0-4.5); HEMATOCRIT 44.5 % (35.4-49); HEMOGLOBIN 14.4 GM/dL (11.7-16.9); LYMPH % 2.9 % (8-40); MCH 31.3 pg (25.7-33.7); MCHC 32.4 g/dl (32.0-35.9); MEAN CELL VOLUME 96.7 fl (80-96); MEAN PLT VOLUME 8.2 fl (7.5-11.1); MONO % 5.8 % (3.8-10.2); NEUT % 90.8 % (42.8-82.8); PLATELET COUNT 264 K/MM3 (134-434); RDW 14.7 % (11.9-15.9); WHITE BLOOD COUNT 18.8 K/mm3 (4.0-10.0)
[2020-04-01 13:36] LABS: INR 1.29 (0.83-1.09); PROTHROMBIN TIME (PATIENT) 15.5 SEC (9.7-13.0)
[2020-04-01 13:39] LABS: ACTIVATED PTT 30.8 SECONDS (25.2-36.5)
[2020-04-01 13:55] LABS: POTASSIUM 3.9 mmol/L (3.5-5.1)
[2020-04-01 13:58] LABS: ALBUMIN 1.7 g/dl (3.4-5.0); CALCIUM 9.1 mg/dL (8.5-10.1)
[2020-04-01 14:02] LABS: BILIRUBIN,TOTAL 1.2 mg/dL (0.2-1); CREATININE 1.5 mg/dL (0.55-1.3)
[2020-04-01 14:03] LABS: TOT PROT 5.7 g/dl (6.4-8.2)
[2020-04-01] MEDS: MORPHINE SULFATE 2 MG/ML VIAL IVPUSH PRN ×2 (17:46→22:06)
[2020-04-01] MEDS: INSULIN (LEVEMIR) 100 UNITS/ML UNITS SQ SCH (23:14)
[2020-04-02] MEDS ORDERED: PIPERACILLIN/TAZOBACTAM 3.375 GM VIAL IVPB ONE ×2 (01:03→09:58)
[2020-04-02] MEDS ORDERED: DEXTROSE 5%-WATER - 50 ML IVPB ONE ×2 (01:04→09:58)
[2020-04-02] MEDS: PIPERACILLIN/TAZOB 3.375 GM 3.375 GM in DEXTROSE 5%-WATER - 50 ML IVPB SCH ×2 (02:40→10:08)
[2020-04-02] MEDS: ALBUTEROL SO4 HFA INHALER IH SCH ×3 (06:38→21:34)
[2020-04-02] MEDS: MORPHINE SULFATE 2 MG/ML VIAL IVPUSH PRN ×3 (06:38→21:33)
[2020-04-02] MEDS: INSULIN SLIDING SCALE (NOVOLOG) 1 VIAL SQ SCH ×2 (06:40→16:45)
[2020-04-02] MEDS: LEVOTHYROXINE SODIUM 100 MCG VIAL IVPUSH SCH (08:36)
[2020-04-02] MEDS: LATANOPROST 0.005% OPHTH SOLN 2.5ML BOTTLE OU SCH (10:08)
[2020-04-02] MEDS: TAMSULOSIN HCL 0.4 MG CAP PO SCH (10:08)
[2020-04-02] MEDS: LEVOTHYROXINE NA 150 MCG TABLET PO SCH (11:35)
[2020-04-02] MEDS: INSULIN (LEVEMIR) 100 UNITS/ML UNITS SQ SCH (21:40)
[2020-04-03] MEDS ORDERED: CARVEDILOL 3.125 MG TABLET (FP) PO ONE (02:01)
[2020-04-03] MEDS ORDERED: SODIUM CHLORIDE 100 ML IV STA (06:08)
[2020-04-03] MEDS: ALBUTEROL SO4 HFA INHALER IH SCH ×2 (06:31→17:03)
[2020-04-03] MEDS: LEVOTHYROXINE SODIUM 100 MCG VIAL IVPUSH SCH (06:35)
[2020-04-03] MEDS: INSULIN SLIDING SCALE (NOVOLOG) 1 VIAL SQ SCH (06:44)
[2020-04-03] MEDS: MORPHINE SULFATE 2 MG/ML VIAL IVPUSH PRN (09:24)
[2020-04-03] MEDS: TAMSULOSIN HCL 0.4 MG CAP PO SCH (10:50)
[2020-04-03] MEDS: LATANOPROST 0.005% OPHTH SOLN 2.5ML BOTTLE OU SCH (10:50)
[2020-04-03 10:54] VITALS: BP 88/57; PULSE 140; TEMP 98
[2020-04-03] MEDS ORDERED: MORPHINE SULFATE 2 MG/ML VIAL IVPUSH PRN (11:22)
== END 2020-04-03 16:29 | disposition expired | DRG 180 ==
LOC: JER 10:51 → JERBED 15:22 → J8W 20:37 → J6S 03-19 13:44
PROVIDERS: ADMIT Internal Medicine; ATTEND Internal Medicine
PROC: 0W9930Z Drainage of Right Pleural Cavity with Drainage Device, Percutaneous Approach (ICD-10-PCS; principal; 2020-03-19)
PROC: 5A09457 Assistance with Respiratory Ventilation, 24-96 Consecutive Hours, Continuous Positive Airway Pressure (ICD-10-PCS; 2020-04-01)
DX: C34.90 Malignant neoplasm of unspecified part of unspecified bronchus or lung (principal); J18.9 Pneumonia, unspecified organism; J96.01 Acute respiratory failure with hypoxia; A41.9 Sepsis, unspecified organism; C7A.1 Malignant poorly differentiated neuroendocrine tumors; E87.2 Acidosis; J91.0 Malignant pleural effusion; F03.90 Unspecified dementia, unspecified severity, without behavioral disturbance, psychotic disturbance, mood disturbance, and anxiety; E11.9 Type 2 diabetes mellitus without complications; Z79.84 Long term (current) use of oral hypoglycemic drugs; D64.9 Anemia, unspecified; E03.9 Hypothyroidism, unspecified; I25.10 Atherosclerotic heart disease of native coronary artery without angina pectoris; E66.9 Obesity, unspecified; H35.30 Unspecified macular degeneration; Z95.5 Presence of coronary angioplasty implant and graft; N40.0 Benign prostatic hyperplasia without lower urinary tract symptoms; K80.20 Calculus of gallbladder without cholecystitis without obstruction; Z68.29 Body mass index [BMI] 29.0-29.9, adult; R59.0 Localized enlarged lymph nodes; H40.9 Unspecified glaucoma; H26.9 Unspecified cataract
CPT/HCPCS: 32557; 36415; 36600; 70551-TC; 71045-TC-FY; 71046-TC-FY; 71250-TC; 74176-TC; 80053; 81003; 82042; 82150; 82248; 82550; 82728; 82803; 82962; 83036; 83605; 83615; 83735; 83880; 83986; 84100; 84157; 84439; 84443; 84478; 84484; 85025; 85027; 85379; 85610; 85730; 86140; 86769; 87040; 87070; 87075; 87086; 87102; 87116; 87186; 87205; 87206; 87210; 87804; 88108; 88305-TC; 88341-TC; 93005; 93010; 93306-TC; 93970-TC; 94010; 94660; 97116-GP; 97162-GP; 99285-25; C9803; J1100; U0003